=== PATIENT | female | born 1950 | race Caucasian/White ===

== ENCOUNTER 2017-02-07 07:35 | Outpatient (CLI) | payer MEDICARE | END 2017-02-07 07:36 | disposition home or self-care (01) | LOC: BICMAMMO 07:35 | PROVIDERS: ATTEND Family Medicine | DX: Z12.31 Encounter for screening mammogram for malignant neoplasm of breast (principal) | CPT/HCPCS: 77063; G0202; 77067 ==

== ENCOUNTER 2018-05-13 12:55 | Outpatient (CLI) | payer MEDICARE ==
--- NOTE | 2018-05-29 14:36 | MMO ---
Bilateral MAMMO Bilat Screen [facility]. CLINICAL HISTORY: Patient is 67 years old and is seen for screening. The patient has no family history of breast cancer. The patient has a history of uterine cancer at age 55. VIEWS: The views performed were: bilateral craniocaudal with tomosynthesis and bilateral mediolateral oblique with tomosynthesis. FILMS COMPARED: The present examination has been compared to prior imaging studies performed at on 09/03/2007, 10/11/2008, 10/12/2009, 09/06/2015 and 02/07/2017. MAMMOGRAM FINDINGS: The breasts are almost entirely fat. There are no suspicious masses, suspicious calcifications, or new areas of architectural distortion. IMPRESSION: THERE IS NO MAMMOGRAPHIC EVIDENCE OF MALIGNANCY. A ROUTINE FOLLOW-UP MAMMOGRAM IN 1 YEAR IS RECOMMENDED. THE RESULTS OF THIS EXAM WERE SENT TO THE PATIENT. ACR BI-RADS Category 1 - Negative MAMMOGRAPHY NOTE: 1. A negative mammogram report should not delay a biopsy if a dominant of clinically suspicious mass is present. 2. Approximately 10% to 15% of breast cancers are not detected by mammography. 3. Adenosis and dense breasts may obscure an underlying neoplasm.
== END 2018-05-13 12:56 | disposition home or self-care (01) ==
LOC: BICMAMMO 12:55
PROVIDERS: ATTEND Family Medicine
DX: Z12.31 Encounter for screening mammogram for malignant neoplasm of breast (principal); Z85.42 Personal history of malignant neoplasm of other parts of uterus
CPT/HCPCS: 77063; 77067

== ENCOUNTER 2019-05-01 23:24 | Inpatient (IN) | payer MEDICARE ==
[2019-05-02 00:09] LABS: #Monocytes 1.3 thou/uL (0.11-0.59); #Neutrophils 12.6 thou/uL (1.40-6.50); %Basophils 0.1 % (0.0-1.0); %Eosinophils 0.3 % (0.0-10.0); %Lymphocytes 12.2 % (21.0-51.0); %Monocytes 8.4 % (0.0-10.0); Hemoglobin 11.7 g/dL (12.0-16.0); Mean Corpuscular HGB CONC 32.6 g/dL (32.0-36.0); Mean Corpuscular Hemoglobin 29.5 pg (27.0-31.0); Mean Corpuscular Volume 90.4 fL (78.0-98.0); Mean Platelet Volume 9.8 fL (7.4-10.4); Platelet Count 176 thou/uL (130-400); RBC Distribution Width 12.5 % (11.5-14.5); Red Blood Cell (RBC) Count 3.96 mill/uL (4.20-5.40); White Blood Cell (WBC) Count 15.9 thou/uL (4.8-10.8)
[2019-05-02 00:36] LABS: Bilirubin Negative (Negative); Blood, Urine Trace (Negative); Glucose, Urine (Dipstick) 100 mg/dL (Negative); Leukocyte Negative (Negative); Nitrite Negative (Negative); Protein, Urine (Dipstick) Negative (Neg-Trace)
[2019-05-02 00:36] LABS: ALT (SGPT) 21 U/L (8-55); AST (SGOT) 14 U/L (5-34); Albumin 3.9 g/dL (3.4-4.8); Alkaline Phosphatase 99 U/L (40-110); Anion Gap 13 mmol/L (10-20); BUN (Urea Nitrogen) 15 mg/dL (9.8-20.1); Bilirubin, Total 0.7 mg/dL (0.2-1.2); Calc. Creatinine Clearance 0 mL/min (70-130); Calcium 8.9 mg/dL (7.8-10.44); Carbon Dioxide 27 mmol/L (23-31); Chloride 102 mmol/L (98-107); Estimated GFR-MDRD 55; Globulin 3.3 g/dL (2.4-3.5); Glucose 208 mg/dL (80-115); Lipase 10 U/L (8-78); Potassium 4.3 mmol/L (3.5-5.1); Protein, Total 7.2 g/dL (6.0-8.3); Sodium 138 mmol/L (136-145)
[2019-05-02 00:37] LABS: Clarity Clear (Clear)
[2019-05-02 00:57] LABS: RBC/HPF 0-3 HPF (0-3); Squamous Epithelial None Seen HPF (0-3); WBC/HPF 0-3 HPF (0-3)
[2019-05-02 01:03] LABS: Bacteria/HPF 1+ HPF (None Seen)
[2019-05-02] MEDS ORDERED: Morphine 4 MG/ML VIAL ONE (01:13)
[2019-05-02] MEDS ORDERED: Ondansetron PF 4 MG/2 ML Vial ONE (01:13)
[2019-05-02] MEDS ORDERED: Fentanyl 100 MCG/2 ML VIAL ONE (03:00)
[2019-05-02] MEDS ORDERED: Ondansetron PF 4 MG/2 ML Vial IVP PRN (03:56)
[2019-05-02] MEDS ORDERED: Ondansetron ODT 4 MG TAB SL PRN (03:56)
[2019-05-02] MEDS ORDERED: Acetaminophen 325 MG TAB PO PRN (03:56)
[2019-05-02] MEDS ORDERED: HYDROcodone/Acetaminophen 5/325 mg Tablet PO PRN (03:56)
[2019-05-02 04:41] VITALS: BMI 44.1
[2019-05-02] MEDS: HYDROcodone/Acetaminophen 5/325 mg Tablet PO PRN ×2 (05:25→11:17)
[2019-05-02] MEDS: Morphine 4 MG/ML VIAL SLOW IVP PRN ×2 (08:15→14:57)
--- NOTE | 2019-05-02 10:14 | CT ---
PRELIMINARY REPORT/[facility]/ AFTER HOURS PROCEDURE CT ABDOMEN AND PELVIS WITHOUT INTRAVENOUS CONTRAST: CLINICAL HISTORY: Patient reports 2 days of mild left flank pain associated with measured fever of 101. Patient reports sudden, severe left flank pain radiating around the front of her abdomen and towards her left leg this evening, associated with nausea. She denies any cough, shortness of breath, chest pain, recent t ravel, or recent sick contacts. Patient denies any dysuria. She endorses history of renal stones previously but did not feel like this. TECHNIQUE: Axial computed tomography images of the abdomen and pelvis without intravenous contrast. CONTRAST: None. COMPARISON: None provided. FINDINGS: LUNG BASES: No basilar airspace consolidation or pleural effusion. LIVER: Calcified granulomas in the spleen and left hepatic lobe. GALLBLADDER AND BILE DUCTS: Surgically absent gallbladder. PANCREAS: Unremarkable. SPLEEN: Unremarkable. ADRENAL GLANDS: Unremarkable. KIDNEYS, URETERS, AND BLADDER: Asymmetric markedly enlarged left kidney with significant perinephric fat stranding. Irregular hypodense appearance of the cortex with significant swelling inferiorly. No apparent focal fluid collection. The ureters and urinary bladder are within normal limits. STOMACH AND BOWEL: No obstruction. No wall thickening. No CT evidence of colitis or acute diverticuli tis. APPENDIX: No CT evidence for appendicitis. PERITONEUM: No free fluid. No free air. LYMPH NODES: No lymphadenopathy. REPRODUCTIVE: Unremarkable as visualized. VASCULATURE: No aortic aneurysm. ABDOMINAL WALL AND SOFT TISSUES: Unremarkable. BONES: No fracture or suspicious osseous abnormality. IMPRESSION: Severe left-sided renal swelling and inflammation suggestive of pyelonephritis especially in the cont ext of the provided history without evidence of intrarenal abscess within the limitations of this noncontrast technique. ELECTRONICALLY SIGNED BY: Mehul Clark DO May 02, 2019 1:08:43 AM CDT This report is intended for review by the ordering physician only, in accordance of law. If you recei ve this report in error, please call [facility] at [phone]. FINAL REPORT CT ABDOMEN AND PELVIS WITHOUT CONTRAST PERFORMED ON AN EMERGENCY BASIS: 05/02/2019 0051 HOURS HISTORY: Left flank pain. FINDINGS: The left kidney is abnormal in that the overall size is expanded, primarily by a peripheral rim of in creased density. Overall it measures up to 8.9 cm in length. Some margins are ill-defined, extending to prominent stranding throughout the expanded left retroperitoneum. The renal collecting s ystem and ureter are decompressed without focal inflammation. No gas is apparent within the hyperdense fluid collection associated with the left kidney. Calcification at the left renal hilum, f avored to be arterial. The appearance is more suggestive of a nephric/perinephric hematoma than with inflammation/infection. It is possible to have superimposed infection involving the hematoma in the setting of fever. Cause for this left nephric/perinephric hematoma is not apparent. There is a tiny, nonobstructing calculus within the posterior calyx of the right kidney, no greater t myles 0.2 cm greatest diameter. These findings were discussed with Dr. Mattson from the [facility] at the time of the dictat ion. Findings are somewhat in disagreement to the preliminary report by Dr. Clark from [facility]. CODE QD Transcribed Date/Time: 05/02/2019 10:23 AM
[2019-05-02] MEDS ORDERED: Dextrose 5% in Water 1,000 ML IV PRN (13:23)
[2019-05-02] MEDS ORDERED: Dextrose 50% Abboject 50 ML SYRINGE SLOW IVP PRN (13:23)
[2019-05-02] MEDS: Morphine 2 MG/ML SYRINGE SLOW IVP PRN (19:51)
--- NOTE | 2019-05-02 19:52 | PDOC.HHP ---
Hospitalist HPI - History of Present Illness abdominal pain History of Present Illness: This is a 68 year old female with past medical histeory of atrial fibrillation, depression, hypertension who presented to the ER with abdominal pain. The patient states that this has been going on for two months and was intermittent. Her PCP did a lumbar Xray which was negative and was told that she had a muscle strain. Last night it was so severe she couldn't take it anymore. Her pain is in the LUQ and left flank area and does not radiate anywhere. It is worst with movement. She denies pain with eating but states she feels nauseous when she eats. She has not vomited The pain is described as sharp, relieved with some pain medication. She has had a kidney stone in the past, but states the pain was worst than this. She denies any trauma recently. She is on eliquis for atrial fibrillation. She states that she has some problems with incontinence recently but denies urgency, frequency or dysuria. She denies chills but thinks she had a fever. ED Course: In the ER, vitals were normal. The patient had labs which showed WBC of 15. UA was unremarkable. The patient had CT abdomen which initially showed signs of pyelonephritis. Levaquin was given. However repeat interpretation per radiology shows findings consistent with a hematoma. Patient is nervous about holding her eliquis because her family members had strokes when they were withheld Hospitalist ROS - Review of Systems Constitutional: reports: fever. denies: chills Eyes: denies: vision change ENT: denies: ear pain, ear discharge Respiratory: reports: dry. denies: cough Cardiovascular: denies: chest pain, palpitations, orthopnea Gastrointestinal: reports: nausea, vomiting, abdominal pain Genitourinary: denies: dysuria, frequency Musculoskeletal: denies: neck pain, shoulder pain Neurological: denies: weakness, numbness Hospitalist History - Past Medical History Other Medical History: Atrial fibrillation Type II diabetes Depresseion Hypertension Hyperlipidemia - Past Surgical History Other Surgical History: Tonsillectomy Appendectomy Cholecystectomy Bypass Cataract surgery Carotid surgery Hysterectomy Cancer removed in uterine area - Family History Other Family History: Skin cancer Liver cancer in sister - Social History Smoking Status: Former smoker Alcohol: reports: None (former drinker quit in 2001) Occupation: does not work - Exam General Appearance: NAD, awake alert Eye: PERRL, anicteric sclera ENT: normocephalic atraumatic, no oropharyngeal lesions Neck: no JVD Heart: RRR, no murmur, no gallops, no rubs Respiratory: CTAB, no wheezes, no rales, no ronchi Gastrointestinal: soft, no guarding Gastrointestinal - other findings: LUQ tenderness, left flank tenderness Extremities: no cyanosis, no clubbing, no edema Skin: normal turgor, no lesions, no rashes Neurological: cranial nerve grossly intact, normal sensation to touch, no focal deficits, no new deficit Hospitalist Results - Labs Result Diagrams: 05/02/19 00:00 05/02/19 00:00 Lab results: WBC 15.9 thou/uL (4.8-10.8) H 05/02/19 00:00 Hgb 11.7 g/dL (12.0-16.0) L 05/02/19 00:00 Hct 35.8 % (36.0-47.0) L 05/02/19 00:00 MCV 90.4 fL (78.0-98.0) 05/02/19 00:00 Plt Count 176 thou/uL (130-400) 05/02/19 00:00 Neutrophils % 79.0 % (42.0-75.0) H 05/02/19 00:00 Sodium 138 mmol/L (136-145) 05/02/19 00:00 Potassium 4.3 mmol/L (3.5-5.1) 05/02/19 00:00 Chloride 102 mmol/L (98-107) 05/02/19 00:00 Carbon Dioxide 27 mmol/L (23-31) 05/02/19 00:00 BUN 15 mg/dL (9.8-20.1) 05/02/19 00:00 Creatinine 1.01 mg/dL (0.6-1.1) 05/02/19 00:00 Glucose 208 mg/dL (80-115) H 05/02/19 00:00 Lactic Acid 0.8 mmol/L (0.5-2.2) 05/02/19 00:00 Calcium 8.9 mg/dL (7.8-10.44) 05/02/19 00:00 Total Bilirubin 0.7 mg/dL (0.2-1.2) 05/02/19 00:00 AST 14 U/L (5-34) 05/02/19 00:00 ALT 21 U/L (8-55) 05/02/19 00:00 Alkaline Phosphatase 99 U/L (40-110) 05/02/19 00:00 Serum Total Protein 7.2 g/dL (6.0-8.3) 05/02/19 00:00 Albumin 3.9 g/dL (3.4-4.8) 05/02/19 00:00 Lipase 10 U/L (8-78) 05/02/19 00:00 Urine Ketones Negative mg/dL (Negative) 05/02/19:20 Urine Blood Trace (Negative) A 05/02/19:20 Urine Nitrite Negative (Negative) 05/02/19:20 Ur Leukocyte Esterase Negative (Negative) 05/02/19 00:20 Urine RBC 0-3 HPF (0-3) 05/02/19 00:20 Urine WBC 0-3 HPF (0-3) 05/02/19 00:20 Ur Squamous Epith Cells None Seen HPF (0-3) 05/02/19 00:20 Urine Bacteria 1+ HPF (None Seen) A 05/02/19 00:20 Hospitalist H&P A/P - Plan Plan: CT abdomen: perinephric hematoma. Nonobstrucfting calculus 0.2 cm This is a 68 year old female who presented with severe abdominal pain, found to have possible hematoma Left nephric/perinephric hematoma - will continue supportive care with fluids - will continue levaquin empirically pending urine culture given significant CVA tenderness. - urology consult in the am - trend H and H Atrial fibrillation - hold eliquis for now and aspirin Diabetes - sliding scale insulin - fingersticks achs Anemia - Hb 11.7, will continue to trend DVT prophylaxis: SCDS for now Code status: full code
--- NOTE | 2019-05-02 20:03 | PDOC.FMACP ---
Advance Care Planning - Note Participants: patient Summary: Advanced Care Planning was discussed. The diagnosis, prognosis and goals of care were discussed. Appropriate forms and documentation to accomplish the goals of care were discussed. All questions were answered. The Palliative Care Team will be engaged to assist with completion of any outstanding forms that are needed. Patient would like to be full code unless she is a "vegetable" Time Spent (mins): 40
[2019-05-02] MEDS: Atorvastatin Calcium 40 MG TAB PO SCH (22:54)
[2019-05-02] MEDS: Gabapentin 300 MG CAP PO SCH (22:55)
[2019-05-02] MEDS: Amitriptyline HCl 25 MG TAB PO SCH (22:55)
[2019-05-03] MEDS: Morphine 2 MG/ML SYRINGE SLOW IVP PRN ×4 (01:12→19:42)
[2019-05-03] MEDS: Ondansetron PF 4 MG/2 ML Vial IVP PRN ×2 (01:14→19:53)
[2019-05-03 06:14] LABS: Iron 30 ug/dL (50-170); Iron Binding Capacity, Total 215 mcg/dL (265-497)
[2019-05-03 06:37] LABS: Ferritin 262.78 ng/mL (10-291)
[2019-05-03] MEDS: Fish Oil 1,000 MG CAP PO SCH (10:26)
[2019-05-03 11:32] LABS: #Lymphocytes 1.6 thou/uL (1.20-3.40); #Monocytes 1.2 thou/uL (0.11-0.59); #Neutrophils 12.7 thou/uL (1.40-6.50); %Basophils 0.1 % (0.0-1.0); %Eosinophils 0.1 % (0.0-10.0); %Lymphocytes 10.2 % (21.0-51.0); %Monocytes 7.7 % (0.0-10.0); %Neutrophils 81.9 % (42.0-75.0); Hemoglobin 9.5 g/dL (12.0-16.0); Mean Corpuscular HGB CONC 32.9 g/dL (32.0-36.0); Mean Corpuscular Hemoglobin 30.4 pg (27.0-31.0); Mean Corpuscular Volume 92.3 fL (78.0-98.0); Mean Platelet Volume 10.4 fL (7.4-10.4); Platelet Count 164 thou/uL (130-400); RBC Distribution Width 12.6 % (11.5-14.5); Red Blood Cell (RBC) Count 3.12 mill/uL (4.20-5.40); White Blood Cell (WBC) Count 15.5 thou/uL (4.8-10.8)
--- NOTE | 2019-05-03 11:50 | CON ---
DATE OF CONSULTATION: 05/03/2019 HISTORY OF PRESENT ILLNESS: This is a 68-year-old white female, was admitted just at this point about 36 hours ago, was on Saturday evening, today Saturday morning, I was asked to see her today. She was admitted with right flank pain, came on acutely that evening, was very severe. She had some nausea with no vomiting. Does not really have any fevers or chills, maybe little urinary frequency, no burning. She may have seen a little blood in her urine. She had a noncontrast CAT scan that shows what appears to be a left subcapsular hematoma. She has been on Eliquis for atrial fibrillation. Hemoglobin when she came in was 11.7. Her white count was 15.9. Her platelet count was normal. She did not have coags done. Her creatinine when she came in was 1.0. None of that blood tests have been repeated. Urinalysis showed 0 to 3 red cells, 0 to 3 white cells, and 1+ bacteria. She was placed on Levaquin. Urine culture was obtained. Urine culture is pending currently. She had a great deal of pain yesterday, although she is feeling a bit better today, and she is actually eating regular food now. She has a history of kidney stones, none recently. She has a history of recurrent urinary tract infections, though none recently. She had seen 2 to 3 different urologists in the past, but cannot recall any of their names. I reviewed her CAT scan as well as the report, it was a noncontrast study. PAST MEDICAL HISTORY: She has atrial fibrillation, diabetes, depression, hypertension, hyperlipidemia. She has had appendectomy, cholecystectomy, coronary artery bypass. PAST SURGICAL HISTORY: She has had carotid surgery. She has had hysterectomy for uterine cancer. She has had cataract surgery and tonsillectomy. SOCIAL HISTORY: She is former smoker. Does not drink alcohol at this point. PHYSICAL EXAMINATION: She does have left CVA tenderness. Abdomen is tender, but otherwise soft, it is tender in the left upper quadrant. There is a rebound in this region, but the rest of the abdomen is soft. IMPRESSION: Left subcapsular hematoma. There is a little bit of perinephric blood. Her vital signs are stable. I think we should at least check a CBC and chem-7 on her again to see what her creatinine is doing and what her hemoglobin is doing. She need a contrast study at some point, but I think as long as her hemoglobin is stable and if she is improving, we can wait and do a contrast study in 2 to 3 weeks to look at this area little bit better. She had a CAT scan done in 2016 that I reviewed and she did not have any evidence of a left-sided renal mass or abnormality. She has a tiny little calcification that could be a tiny little stone in her kidney, but nothing in the ureter and she has some vascular calcifications on this current CT. So, we will check her hemoglobin and check a chem-7. I do not think any other intervention would be required right now. If she does have a return of significant pain or if her hemoglobin is dramatically changing, then we may need to contact Vascular Surgery for arteriogram and possible embolization for persistent bleeding. On reviewing her hemoglobin, her last hemoglobin in February was 12.9, this one is 11.7, so we will see what the one test today show. Job ID: [id number]
[2019-05-03] MEDS: HumaLOG 300 UNITS/3 ML VIAL SC PRN ×3 (14:10→20:07)
[2019-05-03 14:58] LABS: #Eosinphils 0.1 thou/uL (0.0-0.7); #Lymphocytes 1.6 thou/uL (1.20-3.40); #Monocytes 1.1 thou/uL (0.11-0.59); #Neutrophils 11.7 thou/uL (1.40-6.50); %Basophils 0.2 % (0.0-1.0); %Eosinophils 0.5 % (0.0-10.0); %Lymphocytes 11.2 % (21.0-51.0); %Monocytes 7.7 % (0.0-10.0); %Neutrophils 80.4 % (42.0-75.0); Hemoglobin 9.5 g/dL (12.0-16.0); Mean Corpuscular HGB CONC 32.6 g/dL (32.0-36.0); Mean Corpuscular Hemoglobin 29.8 pg (27.0-31.0); Mean Corpuscular Volume 91.4 fL (78.0-98.0); Mean Platelet Volume 9.3 fL (7.4-10.4); Platelet Count 186 thou/uL (130-400); RBC Distribution Width 12.5 % (11.5-14.5); Red Blood Cell (RBC) Count 3.19 mill/uL (4.20-5.40); White Blood Cell (WBC) Count 14.6 thou/uL (4.8-10.8)
[2019-05-03 15:21] LABS: Anion Gap 11 mmol/L (10-20); BUN (Urea Nitrogen) 13 mg/dL (9.8-20.1); Calc. Creatinine Clearance 75 mL/min (70-130); Carbon Dioxide 29 mmol/L (23-31); Chloride 98 mmol/L (98-107); Estimated GFR-MDRD 40; Glucose 243 mg/dL (80-115); Potassium 4.8 mmol/L (3.5-5.1); Sodium 133 mmol/L (136-145)
--- NOTE | 2019-05-03 15:46 | PDOC.HOSPP ---
- Subjective Encounter Date: 05/03/19 Encounter Time: 15:45 Subjective: CC: hematoma The patient reports improvement in her abdominal pain. Today is the first day that she is able to eat food. She has no nausea or vomiting. No blood in her urine. CBC went down to 9 today, per urology will trend CBC tonight, consideration of embolization of continues to drop Patient has not been out of bed. I advise patient to ambulate frequently to prevent clots - Objective Vital Signs & Weight: Vital Signs (12 hours) Temp Pulse Resp BP Pulse Ox 05/03/19 11:54 99.1 F 96 16 138/80 05/03/19 08:00 95 05/03/19 07:43 99.0 F 89 16 126/80 95 05/03/19 04:39 98.5 F 89 20 122/54 L 98 Weight Admit Weight 249 lb Weight 249 lb I&O: 05/02/19 05/03/19 05/04/19 06:59 06:59 06:59 Intake Total 240 240 Output Total 400 Balance -160 240 Result Diagrams: 05/03/19 14:52 05/03/19 14:52 Additional Labs: Accuchecks 05/03/19 05/03/19 05/02/19 11:58 04:48 19:31 POC Glucose 239 H 213 H 251 H 05/02/19 16:35 POC Glucose 264 H Hospitalist ROS - Medication Medications: Active Medications Generic Name Dose Route Start Last Admin Trade Name Freq PRN Reason Stop Dose Admin Amitriptyline HCl 50 mg 05/02/19 21:00 05/02/19 22:55 Elavil PO 50 mg HS LENNOX Administration Atorvastatin Calcium 80 mg 05/02/19 21:00 05/02/19 22:54 Lipitor PO 80 mg HS LENNOX Administration Cholecalciferol 5,000 units 05/03/19 09:00 05/03/19 10:25 Vitamin D3 PO 5,000 units DAILY LENNOX Administration Fish Oil 1,000 mg 05/03/19 09:00 05/03/19 10:26 Fish Oil PO 1,000 mg DAILY LENNOX Administration Gabapentin 600 mg 05/02/19 21:00 05/02/19 22:55 Neurontin PO 600 mg HS LENNOX Administration Levofloxacin 750 mg/ Device 150 mls @ 100 mls/hr 05/03/19 01:00 05/03/19 00: 45 IVPB 150 mls Q24HR LENNOX Administration Insulin Human Lispro 0 units 05/02/19 13:23 05/03/19 14:10 Humalog SC 3 unit .MILD SLIDING SCALE PRN Administration Mild Correctional Scale Morphine Sulfate 2 mg 05/02/19 17:10 05/03/19 14:56 Morphine SLOW IVP 2 mg Q4H PRN Administration Moderate Pain (4-6) Ondansetron HCl 4 mg 05/02/19 17:10 05/03/19 01:14 Zofran IVP 4 mg Q6H PRN Administration Nausea/Vomiting - Exam General Appearance: NAD, awake alert Eye: PERRL, anicteric sclera ENT: normocephalic atraumatic, no oropharyngeal lesions Neck: supple, no JVD Heart: RRR, no murmur, no gallops, no rubs Respiratory: CTAB, no wheezes, no rales, no ronchi Gastrointestinal - other findings: LUQ and LLQ tenderness, no CVA tenderness Extremities: no cyanosis, no edema Skin: normal turgor, no lesions, no rashes Hosp A/P - Plan This is a 68 year old female who presented with severe abdominal pain, found to have possible hematoma Left nephric/perinephric hematoma Anemia - continue to trend hemoglobin. Will repeat one at 7 pm tonight. Hemoglobin dropped 2 points. If continues to drop significantly will consider transfusion - urology consulted, recommended supportive care - urine culture growing 10,000 to 25,000 gram negative rods. On levaquin, continue for now pending final report Atrial fibrillation - hold eliquis for now and aspirin - will need discussion with Dr. Stevenson regarding resumption of anticoagulation down the road Diabetes - sliding scale insulin - fingersticks achs Code status: full code
[2019-05-03 19:14] LABS: Hemoglobin 9.2 g/dL (12.0-16.0); Mean Corpuscular Volume 91.1 fL (78.0-98.0); Mean Platelet Volume 9.5 fL (7.4-10.4); Platelet Count 193 thou/uL (130-400); RBC Distribution Width 12.4 % (11.5-14.5); Red Blood Cell (RBC) Count 3.07 mill/uL (4.20-5.40); White Blood Cell (WBC) Count 15.1 thou/uL (4.8-10.8)
[2019-05-03] MEDS: Sodium Chloride 0.9% 1,000 ML IV SCH (19:47)
[2019-05-03] MEDS: Atorvastatin Calcium 40 MG TAB PO SCH (19:54)
[2019-05-03] MEDS: Gabapentin 300 MG CAP PO SCH (19:55)
[2019-05-03] MEDS: Senokot S 8.6-50 MG TAB PO SCH (19:55)
[2019-05-03] MEDS: Amitriptyline HCl 25 MG TAB PO SCH (19:55)
[2019-05-04] MEDS: Morphine 2 MG/ML SYRINGE SLOW IVP PRN ×3 (00:11→15:08)
[2019-05-04] MEDS ORDERED: Sodium Chloride 0.9% 500 ML IV SCH (00:30)
--- NOTE | 2019-05-04 00:39 | PDOC.EVN ---
Event Note - Event Note Event Note: Patient with HR in the 130-140's ... has a history of Afib, eliquis and metoprolol held for renal hematoma. EKG with indeterminate rhythm, will transfer to Tele, IVF 500ml bolus ordered, will check BMP, CBC and Mag with am labs. Dr. Samuel arauz.
[2019-05-04] MEDS: Sodium Chloride 0.9% 500 ML IV SCH ×2 (01:10→01:54)
[2019-05-04] MEDS ORDERED: Digoxin 0.5 MG/2 ML AMP SLOW IVP SCH ×2 (01:30→03:00)
[2019-05-04] MEDS ORDERED: Sodium Chloride 0.9% 500 ML IVPB PRN (02:58)
[2019-05-04] MEDS ORDERED: Metoprolol Tartrate 5 MG/5 ML VIAL IVP SCH (03:00)
[2019-05-04 05:07] LABS: Hemoglobin 8.8 g/dL (12.0-16.0); Mean Corpuscular HGB CONC 32.3 g/dL (32.0-36.0); Mean Corpuscular Hemoglobin 29.4 pg (27.0-31.0); Mean Corpuscular Volume 90.9 fL (78.0-98.0); Mean Platelet Volume 9.9 fL (7.4-10.4); Platelet Count 215 thou/uL (130-400); RBC Distribution Width 12.3 % (11.5-14.5); White Blood Cell (WBC) Count 15.1 thou/uL (4.8-10.8)
[2019-05-04 05:30] LABS: Anion Gap 10 mmol/L (10-20); BUN (Urea Nitrogen) 15 mg/dL (9.8-20.1); Calc. Creatinine Clearance 76 mL/min (70-130); Calcium 8.5 mg/dL (7.8-10.44); Carbon Dioxide 27 mmol/L (23-31); Chloride 101 mmol/L (98-107); Estimated GFR-MDRD 41; Glucose 204 mg/dL (80-115); Magnesium 1.8 mg/dL (1.6-2.6); Potassium 5.1 mmol/L (3.5-5.1); Sodium 133 mmol/L (136-145)
[2019-05-04] MEDS: Senokot S 8.6-50 MG TAB PO SCH ×2 (08:06→20:43)
[2019-05-04] MEDS: Fish Oil 1,000 MG CAP PO SCH (08:06)
--- NOTE | 2019-05-04 09:22 | PRG ---
DATE OF SERVICE: 05/04/2019 She was transferred to telemetry last night because of rapid heart rate. Assuming she went back into atrial fibrillation, her heart rate is now back to normal. Her blood pressure was fine through it. She is still having some discomfort in her left side, however, it is better than it was yesterday. She has been afebrile since yesterday afternoon, when she was 100.1. Her white blood cell count is 15.1, her hemoglobin is 8.8 this morning, so it has drifted down, but it does not appear to be rapidly drifting down. Platelet count was 215. Creatinine is basically stable at 1.3. Microbiology shows 2 gram-negative rods, both of very low counts as well as mixed skin and enteric sharonda. It is probably contamination, but I did called microbiology department workup of two gram-negative rods. She is still on Levaquin. I think we can continue to watch her hemoglobin and blood work. I would keep her on the antibiotics till the cultures return. Keep her off all blood thinners. If her hemoglobin drops down some more, we may repeat a CAT scan before considering any other intervention in terms of angiography. Job ID: [id number]
[2019-05-04] MEDS ORDERED: Metoprolol Tartrate 25 MG TAB PO SCH ×2 (09:55→10:45)
[2019-05-04] MEDS: Sodium Chloride 0.9% 1,000 ML IV SCH (15:17)
[2019-05-04] MEDS: HYDROcodone/Acetaminophen 5/325 mg Tablet PO PRN ×2 (16:19→22:02)
[2019-05-04] MEDS: HumaLOG 300 UNITS/3 ML VIAL SC PRN ×2 (19:11→21:56)
--- NOTE | 2019-05-04 19:20 | PDOC.HOSPP ---
- Subjective Encounter Date: 05/04/19 Encounter Time: 17:30 Subjective: F/u: hematoma The patient went into afib overnight and was transferred to telemetry. Patient was given IV metoprolol overnight SHe continues to complain of significant pain in her left flank but states it is radiating to her abdomen. She has trouble walking due to the pain. She also states the pain is worst when bending over, turning. She is having nursing help her give a bath. She is desperate for pain to go away Patient states she has been not wanting to drink or eat much due to the pain. Advised her to drink more. SHe has not had a good bowel movement because she hasn't been eating much - Objective Vital Signs & Weight: Vital Signs (12 hours) Temp Pulse Resp BP Pulse Ox 05/04/19 16:21 98.7 F 77 18 146/67 H 97 05/04/19 12:32 98.3 F 89 18 140/62 96 05/04/19 08:00 96 05/04/19 07:55 98.5 F 83 18 130/78 92 L Weight Admit Weight 249 lb Weight 249 lb I&O: 05/03/19 05/04/19 05/05/19 06:59 06:59 06:59 Intake Total 240 1545 Output Total 400 Balance -160 1545 Result Diagrams: 05/04/19 04:34 05/04/19 04:34 Additional Labs: Accuchecks 05/04/19 05/04/19 05/03/19 17:44 11:30 19:36 POC Glucose 216 H 315 H 263 H Hospitalist ROS - Review of Systems Constitutional: denies: fever, chills Respiratory: denies: cough, dry - Medication Medications: Active Medications Generic Name Dose Route Start Last Admin Trade Name Freq PRN Reason Stop Dose Admin Hydrocodone Bitart/Acetaminophen 1 tab 05/04/19 13:28 05/04/19 16:19 [place] 5/325 PO 1 tab Q6H PRN Administration Mild-Moderate Pain (1-5) Amitriptyline HCl 50 mg 05/02/19 21:00 05/03/19 19:55 Elavil PO 50 mg HS LENNOX Administration Atorvastatin Calcium 80 mg 05/02/19 21:00 05/03/19 19:54 Lipitor PO 80 mg HS LENNOX Administration Cholecalciferol 5,000 units 05/03/19 09:00 05/04/19 08:06 Vitamin D3 PO 5,000 units DAILY LENNOX Administration Fish Oil 1,000 mg 05/03/19 09:00 05/04/19 08:06 Fish Oil PO 1,000 mg DAILY LENNOX Administration Gabapentin 600 mg 05/02/19 21:00 05/03/19 19:55 Neurontin PO 600 mg HS LENNOX Administration Levofloxacin 750 mg/ Device 150 mls @ 100 mls/hr 05/03/19 01:00 05/04/19 00: 12 IVPB 150 mls Q24HR LENNOX Administration Sodium Chloride 1,000 mls @ 75 mls/hr 05/03/19 19:30 05/04/19 15:17 Normal Saline 0.9% IV 1,000 mls .[id number] LENNOX Administration Insulin Human Lispro 0 units 05/02/19 13:23 05/04/19 19:11 Humalog SC 3 unit .MILD SLIDING SCALE PRN Administration Mild Correctional Scale Morphine Sulfate 2 mg 05/02/19 17:10 05/04/19 15:08 Morphine SLOW IVP 2 mg Q4H PRN Administration BREAKTHRU PAIN Ondansetron HCl 4 mg 05/02/19 17:10 05/03/19 19:53 Zofran IVP 4 mg Q6H PRN Administration Nausea/Vomiting Senna/Docusate Sodium 1 tab 05/03/19 21:00 05/04/19 08:06 Senokot S PO 1 tab BID LENNOX Administration - Exam General Appearance: NAD, awake alert General - other findings: morbidly obese Eye: PERRL, anicteric sclera ENT: normocephalic atraumatic, no oropharyngeal lesions Neck: supple, no JVD Heart: RRR, no murmur, no gallops, no rubs Respiratory: CTAB, no wheezes, no rales, no ronchi Gastrointestinal: soft, non-tender, non-distended, normal bowel sounds Gastrointestinal - other findings: left CVA tenderness, LUQ and LLQ tenderness Extremities: no cyanosis, no clubbing, no edema Skin: normal turgor, no lesions, no rashes Neurological: cranial nerve grossly intact, normal sensation to touch, no focal deficits, no new deficit Musculoskeletal: normal tone, normal strength, no muscle wasting Psychiatric: normal affect, normal behavior, A&O x 3, oriented to person Hosp A/P - Plan This is a 68 year old female who presented with severe abdominal pain, found to have possible hematoma Left nephric/perinephric hematoma Anemia - hemoglobin dropped slightly overnight. Will repeat another one now and check another in the morning - urology on board, if drops significantly then will need embolization - urine culture growing 10,000 to 25,000 gram negative rods. On levaquin, continue for now pending final report Atrial fibrillation - hold eliquis for now and aspirin - resumed metoprolol 12.5 mg bid Diabetes - sliding scale insulin. Will order lantus 10 units qhs since blood sugars in the 300's - fingersticks achs DVT prophylaxis: holding due to hematoma. SCD and frequent ambulation Code status: full code
[2019-05-04] MEDS ORDERED: Polyethylene Glycol 3350 17 GM Packet PO PRN (19:21)
[2019-05-04 19:42] LABS: Hemoglobin 8.9 g/dL (12.0-16.0); Mean Corpuscular HGB CONC 32.6 g/dL (32.0-36.0); Mean Corpuscular Hemoglobin 29.8 pg (27.0-31.0); Mean Corpuscular Volume 91.6 fL (78.0-98.0); Mean Platelet Volume 8.8 fL (7.4-10.4); Platelet Count 248 thou/uL (130-400); RBC Distribution Width 12.2 % (11.5-14.5); Red Blood Cell (RBC) Count 2.99 mill/uL (4.20-5.40)
[2019-05-04] MEDS: Amitriptyline HCl 25 MG TAB PO SCH (20:43)
[2019-05-04] MEDS: Metoprolol Tartrate 25 MG TAB PO SCH (20:43)
[2019-05-04] MEDS: Gabapentin 300 MG CAP PO SCH (20:43)
[2019-05-04] MEDS: Atorvastatin Calcium 40 MG TAB PO SCH (20:43)
[2019-05-04] MEDS ORDERED: Insulin Glargine 10 UNITS in Pre-Filled Syringe 1 EACH SC SCH (21:00)
[2019-05-05] MEDS: HYDROcodone/Acetaminophen 5/325 mg Tablet PO PRN ×4 (04:28→22:32)
[2019-05-05 04:51] LABS: Hemoglobin 8.6 g/dL (12.0-16.0); Mean Corpuscular HGB CONC 31.6 g/dL (32.0-36.0); Mean Corpuscular Volume 91.8 fL (78.0-98.0); Mean Platelet Volume 9.2 fL (7.4-10.4); Platelet Count 259 thou/uL (130-400); RBC Distribution Width 12.4 % (11.5-14.5); Red Blood Cell (RBC) Count 2.97 mill/uL (4.20-5.40); White Blood Cell (WBC) Count 12.2 thou/uL (4.8-10.8)
[2019-05-05 05:32] LABS: Anion Gap 10 mmol/L (10-20); BUN (Urea Nitrogen) 15 mg/dL (9.8-20.1); Calc. Creatinine Clearance 89 mL/min (70-130); Calcium 9.1 mg/dL (7.8-10.44); Carbon Dioxide 30 mmol/L (23-31); Chloride 102 mmol/L (98-107); Estimated GFR-MDRD 49; Glucose 163 mg/dL (80-115); Potassium 5.1 mmol/L (3.5-5.1); Sodium 137 mmol/L (136-145)
[2019-05-05] MEDS: Fish Oil 1,000 MG CAP PO SCH (09:21)
[2019-05-05] MEDS: Metoprolol Tartrate 25 MG TAB PO SCH ×2 (09:22→19:50)
[2019-05-05] MEDS: Senokot S 8.6-50 MG TAB PO SCH ×2 (09:27→19:51)
[2019-05-05] MEDS: Ondansetron PF 4 MG/2 ML Vial IVP PRN ×2 (10:29→19:52)
--- NOTE | 2019-05-05 11:22 | EKG ---
Test Reason : RHYTHM Blood Pressure : / mmHG Vent. Rate : 145 BPM Atrial Rate : 127 BPM P-R Int : 000 ms QRS Dur : 086 ms QT Int : 284 ms P-R-T Axes : 000 055 126 degrees QTc Int : 441 ms Atrial fibrillation Nonspecific ST and T wave abnormality Abnormal ECG No previous ECGs available Confirmed by DR. Donny BEATTY MD ([id number]) on 05/05/2019 11:22:01 AM Referred By: Caden DUNLAP Confirmed By:DR. Donny BEATTY MD
[2019-05-05] MEDS: Sodium Chloride 0.9% 1,000 ML IV SCH ×2 (11:48→17:11)
[2019-05-05] MEDS: HumaLOG 300 UNITS/3 ML VIAL SC PRN ×2 (11:49→17:34)
--- NOTE | 2019-05-05 12:10 | PRG ---
DATE OF SERVICE: 05/05/2019 She is in room 268 still. She is not tachycardic anymore. O2 sats are good. She has been afebrile. Creatinine is 1.1. Her hemoglobin is 8.6, it was 8.9 yesterday, 8.8 yesterday morning, it has dropped slightly. Her cultures did grow out E coli and Klebsiella, are pretty much pansensitive. She is probably just be placed on oral antibiotic for that. She has currently been on IV Levaquin 750 mg, she could certainly be switched to just 500 mg p.o. Levaquin. She still is having some discomfort when she moves around. She has some tenderness on palpation to the left upper quadrant. She will need a CAT scan with contrast, it probably is a good time to do it with her creatinine being as low as it is, so I will order that to be done today to get a better look at the kidney itself. I do not think this might change much of what we will do for this. At this point, I think she will end up being managed without requiring embolization, but will take with a better CAT scan today. Job ID: [id number]
[2019-05-05] MEDS: Morphine 2 MG/ML SYRINGE SLOW IVP PRN ×2 (12:31→19:51)
--- NOTE | 2019-05-05 18:13 | PDOC.HOSPP ---
- Subjective Encounter Date: 05/05/19 Encounter Time: 16:00 Subjective: F/u: perinephric hematoma The patient continues to complain of severe flank pain on the left side. Her hemoglobin is dropping some. Urology wants to repeat CAT scan . When she walked with physical therapy she had a lot of pain s prefers just doing exercises in her bed - Objective Vital Signs & Weight: Vital Signs (12 hours) Temp Pulse Resp BP Pulse Ox 05/05/19 15:52 99.5 F 74 16 140/62 96 05/05/19 11:57 98.6 F 72 16 140/64 97 05/05/19 09:08 99.4 F 80 16 152/67 H 93 L Weight Admit Weight 249 lb Weight 249 lb I&O: 05/04/19 05/05/19 05/06/19 06:59 06:59 06:59 Intake Total 2682 659 6365 Balance 9888 471 0794 Result Diagrams: 05/05/19 03:57 05/05/19 03:57 Additional Labs: Accuchecks 05/05/19 05/05/19 05/05/19 17:03 11:29 05:27 POC Glucose 221 H 252 H 182 H 05/04/19 20:47 POC Glucose 297 H Hospitalist ROS - Review of Systems Constitutional: denies: fever Respiratory: denies: pleuritic pain - Medication Medications: Active Medications Generic Name Dose Route Start Last Admin Trade Name Freq PRN Reason Stop Dose Admin Hydrocodone Bitart/Acetaminophen 1 tab 05/04/19 13:28 05/05/19 16:45 [place] 5/325 PO 1 tab Q6H PRN Administration Mild-Moderate Pain (1-5) Amitriptyline HCl 50 mg 05/02/19 21:00 05/04/19 20:43 Elavil PO 50 mg HS LENNOX Administration Atorvastatin Calcium 80 mg 05/02/19 21:00 05/04/19 20:43 Lipitor PO 80 mg HS LENNOX Administration Cholecalciferol 5,000 units 05/03/19 09:00 05/05/19 09:22 Vitamin D3 PO 5,000 units DAILY LENNOX Administration Fish Oil 1,000 mg 05/03/19 09:00 05/05/19 09:21 Fish Oil PO 1,000 mg DAILY LENNOX Administration Gabapentin 600 mg 05/02/19 21:00 05/04/19 20:43 Neurontin PO 600 mg HS LENNOX Administration Levofloxacin 750 mg/ Device 150 mls @ 100 mls/hr 05/03/19 01:00 05/05/19 00: 38 IVPB 150 mls Q24HR LENNOX Administration Sodium Chloride 1,000 mls @ 75 mls/hr 05/03/19 19:30 05/05/19 17:11 Normal Saline 0.9% IV Not Given .[id number] LENNOX Insulin Glargine 10 units/ 0.1 mls @ 0 mls/hr 05/04/19 21:00 05/04/19 21:54 Miscellaneous Medication SC 0.1 mls HS LENNOX Administration Insulin Human Lispro 0 units 05/02/19 13:23 05/05/19 17:34 Humalog SC 3 unit .MILD SLIDING SCALE PRN Administration Mild Correctional Scale Insulin Human Lispro 0 units 05/04/19 20:53 05/04/19 21:56 Humalog SC 3 unit .BEDTIME SLIDING SC PRN Administration Bedtime Correctional Scale Metoprolol Tartrate 12.5 mg 05/04/19 21:00 05/05/19 09:22 Lopressor PO 12.5 mg BID LENNOX Administration Morphine Sulfate 2 mg 05/02/19 17:10 05/05/19 12:31 Morphine SLOW IVP 2 mg Q4H PRN Administration BREAKTHRU PAIN Ondansetron HCl 4 mg 05/02/19 17:10 05/05/19 10:29 Zofran IVP 4 mg Q6H PRN Administration Nausea/Vomiting Senna/Docusate Sodium 1 tab 05/03/19 21:00 05/05/19 09:27 Senokot S PO 1 tab BID LENNOX Administration - Exam General Appearance: NAD, awake alert General - other findings: Morbidly obese Eye: PERRL, anicteric sclera ENT: normocephalic atraumatic, no oropharyngeal lesions Neck: no JVD Heart: RRR, no murmur, no gallops Respiratory: CTAB, no wheezes, no rales, no ronchi Gastrointestinal: soft, non-tender, normal bowel sounds Gastrointestinal - other findings: LUQ and LLQ tendernes, CVA tenderness to mild palpatoin Extremities: no cyanosis, no clubbing, no edema Skin: normal turgor, no lesions, no rashes Neurological: cranial nerve grossly intact, normal sensation to touch, no weakness, no focal deficits, no new deficit Musculoskeletal: normal tone, normal strength, no muscle wasting Psychiatric: normal affect, normal behavior, A&O x 3 Hosp A/P - Plan This is a 68 year old female who presented with severe abdominal pain, found to have possible hematoma Left nephric/perinephric hematoma Anemia - hemoglobin dropped slightly. CT scan ordered and pending - urology on board, if drops significantly then will need embolization - urine culture growing 10,000 to 25,000 gram negative rods. On levaquin, continue for now pending final report but will switch to oral antibiotics Atrial fibrillation - hold eliquis for now and aspirin - resumed metoprolol 12.5 mg bid - cardiology will be consulted, per Dr. Stevenson may need a Lariat device Diabetes - sliding scale insulin. Will increase lantus to 12 units - fingersticks achs DVT prophylaxis: continue SCDS Code status: full code
[2019-05-05] MEDS: predniSONE 50 MG TAB PO SCH (19:50)
--- NOTE | 2019-05-05 19:50 | CON ---
DATE OF CONSULTATION: 05/05/2019 REASON FOR CONSULTATION: Bleeding and need for Eliquis. PRIMARY TONE ARTIST APPRENTICE: Sukhdeep Stevenson MD HISTORY OF PRESENT ILLNESS: Ms. Stroud is a pleasant 68-year-old white female, who comes to the hospital for abdominal pain. Her pain is actually on her left flank. She was diagnosed with a left subcapsular renal hematoma with perinephric blood, so her Eliquis and aspirin were stopped. Her hemoglobin has dropped mildly from about 11 to 8 now. Her pain is stable, but she has had this for a few weeks now. She has paroxysmal atrial fibrillation and has been on atrial fibrillation for some time now. I am being asked to give my opinion as to what other measures we can have for stroke prophylaxis as she is very nervous that she is going to have a stroke as her brother had a similar situation where he had his anticoagulants stopped and he had a stroke in the interim. Currently, she has no symptoms of a stroke. PAST MEDICAL HISTORY: 1. Coronary artery disease, status post bypass grafting x4. 2. Severe aortic stenosis, status post bioprosthetic surgical aortic valve and subsequently severe stenosis of this bioprosthetic valve and status post TAVR in [place] in 2017. 3. Type 2 diabetes. 4. Hypertension. FAMILY HISTORY: Coronary artery disease in both father and brother. SOCIAL HISTORY: Quit smoking in 2001. No alcohol or drugs. OUTPATIENT MEDICATIONS: 1. Vitamin D3. 2. Tizanidine. 3. Metformin 500 mg at bedtime. 4. Onward-3 fish oil. 5. Glipizide 5 mg a day. 6. Amlodipine 10 mg a day. 7. Aspirin 81 a day. 8. Metoprolol tartrate 25 mg b.i.d. 9. Eliquis 5 mg b.i.d. 10. Omeprazole 20 mg a day. 11. Amitriptyline. 12. Tylenol with Codeine. 13. Atorvastatin 80 mg at bedtime. 14. Gabapentin. 15. Isosorbide mononitrate 30 mg a day. 16. Lisinopril 40 mg a day. ALLERGIES: 1. CEPHALEXIN GIVES HER HIVES. 2. CONTRAST GIVES HER RASH. 3. PROPOXYPHENE GIVES HER EMESIS. 4. SULFA DRUGS GIVE HER RASH. REVIEW OF SYSTEMS: A 12-point review of systems was done and was all negative unless stated in the history of present illness. PHYSICAL EXAMINATION: VITAL SIGNS: Temperature 99.5, pulse 74, respiratory rate 16, saturating 96% on 2 L nasal cannula, and blood pressure 140/62. GENERAL: Awake, alert, and oriented x3, in no distress. HEENT: Normocephalic and atraumatic. NECK: Supple. LUNGS: Clear. CARDIOVASCULAR: S1 and S2. No S3 or S4. No murmurs. ABDOMEN: Soft. Positive bowel sounds. EXTREMITIES: Trace edema. SKIN: Warm and dry. LABORATORY DATA: Laboratory work was reviewed. CBC with a white count of 15 on admission down to 12.2, her hemoglobin went from 11.7 down to 8.6 today. Normal platelet count. Chemistry with normal sodium potassium, chloride, carbon dioxide, gap of 10, BUN of 15, creatinine 1.11, GFR of 49, calcium of 9.1, normal LFT, and lipase of 10. UA with 100 glucose, trace blood, 1+ bacteria, and urine positive culture for E coli and Klebsiella pneumoniae. E coli only 10,000 to 25,000 units as well as Klebsiella, so this is probably normal skin sharonda. CT of the abdomen was reviewed. EKG was reviewed. ASSESSMENT: 1. Left renal subcapsular hematoma with mild amount of perinephric blood. 2. Paroxysmal atrial fibrillation, on Eliquis. 3. Coronary artery disease, status post coronary artery bypass graft. Stable coronary artery disease. No acute coronary syndrome. 4. Severe aortic stenosis, status post transcatheter aortic valve replacement with [id number] technique, previous bioprosthetic aortic valve. PLAN: 1. Agree with stopping Eliquis and aspirin. At this time, we will discuss with Urology whether the timing of restarting at least low-dose aspirin for stroke prophylaxis. I will also place once I know how if this is something that will make her have a contraindication to full anticoagulation. She will be a candidate for a Watchman or LARIAT device. We will discuss this in the next few days and we may need to put in an EP consultation at that point, but we will hold off for now. 2. Continue to trend CBC per primary team and Urology. Thank you for letting us to participate in the care of the patient. We will follow. Job ID: [id number]
[2019-05-05] MEDS: Amitriptyline HCl 25 MG TAB PO SCH (19:51)
[2019-05-05] MEDS: Atorvastatin Calcium 40 MG TAB PO SCH (19:51)
[2019-05-05] MEDS: Gabapentin 300 MG CAP PO SCH (19:52)
[2019-05-05] MEDS: Insulin Glargine 12 UNITS in Pre-Filled Syringe 1 EACH SC SCH (19:56)
[2019-05-06] MEDS: predniSONE 50 MG TAB PO SCH ×2 (00:58→08:43)
[2019-05-06] MEDS: Sodium Chloride 0.9% 1,000 ML IV SCH (01:02)
[2019-05-06] MEDS: HYDROcodone/Acetaminophen 5/325 mg Tablet PO PRN ×3 (04:36→18:21)
[2019-05-06] MEDS ORDERED: diphenhydrAMINE 50 MG CAP PO SCH (08:00)
[2019-05-06] MEDS: Fish Oil 1,000 MG CAP PO SCH (08:44)
[2019-05-06] MEDS: Metoprolol Tartrate 25 MG TAB PO SCH ×2 (08:44→21:05)
[2019-05-06] MEDS: Senokot S 8.6-50 MG TAB PO SCH ×2 (08:45→21:05)
[2019-05-06] MEDS: HumaLOG 300 UNITS/3 ML VIAL SC PRN ×4 (08:45→21:06)
--- NOTE | 2019-05-06 10:35 | CT ---
CT Abdomen Pelvis W WO con: 05/06/2019 9:00 AM CLINICAL HISTORY: Left perinephric hematoma. TECHNIQUE: Multiple contiguous axial images were obtained and a CT of the abdomen and pelvis without and with IV contrast. Postcontrast images were obtained in the nephrographic and excretory phases. Sagittal and coronal reformats were performed. COMPARISON: 05/02/2019 FINDINGS: Kidneys and Urinary Tract: Right kidney and ureter: There is a stable perinephric hematoma surrounding the right kidney measurin g 3.3 cm in greatest thickness. There is debris decreased enhancement of the left kidney compared to the right minimal excretion on the excretory phase images. No calculi. No hydronephrosis or hydrou reter. No obvious renal mass or other lesions. No urothelial lesions: no filling defect, dilation, stricture or wall thickening. Left kidney and ureter: No calculi. No hydronephrosis or hydroureter. No renal mass or other lesions. No urothelial lesions: no filling defect, dilation, stricture or wall thickening. Urinary bladder: Normal, no calculi, mass or other lesions. Remainder of Abdomen and Pelvis: Liver: Normal. Gallbladder and biliary system: Removed No biliary ductal dilatation. Spleen: Calcified granulomas Pancreas: Normal. Adrenal glands: 1.6 cm right adrenal nodule. This has a mean Hounsfield unit value of 10 on the nonco ntrast exam. GI tract: Normal. Abdominal aorta and its major branches: Atherosclerotic calcifications. No aneurysm. Peritoneum/retroperitoneum: Normal. No ascites. No adenopathy. Pelvic structures: Normal. No pelvic lymphadenopathy. Body wall and musculoskeletal: 3.1 cm fat-containing lower anterior abdominal wall ventral hernia Visualized lower thorax: Small left pleural effusion. No pulmonary parenchymal mass or pleural effusion. IMPRESSION: 1. Stable left perinephric hematoma. There is enhancement and excretion of the left kidney but decrea sed function of the left kidney compared to the right. 2. Right adrenal nodule
[2019-05-06 11:17] LABS: Hemoglobin 9.4 g/dL (12.0-16.0); Mean Corpuscular HGB CONC 32.3 g/dL (32.0-36.0); Mean Corpuscular Hemoglobin 29.5 pg (27.0-31.0); Mean Corpuscular Volume 91.4 fL (78.0-98.0); Mean Platelet Volume 8.3 fL (7.4-10.4); Platelet Count 307 thou/uL (130-400); RBC Distribution Width 12.2 % (11.5-14.5); Red Blood Cell (RBC) Count 3.17 mill/uL (4.20-5.40); White Blood Cell (WBC) Count 10.1 thou/uL (4.8-10.8)
[2019-05-06 11:41] LABS: Anion Gap 12 mmol/L (10-20); BUN (Urea Nitrogen) 17 mg/dL (9.8-20.1); Calc. Creatinine Clearance 94 mL/min (70-130); Calcium 9.5 mg/dL (7.8-10.44); Carbon Dioxide 30 mmol/L (23-31); Chloride 100 mmol/L (98-107); Estimated GFR-MDRD 52; Glucose 256 mg/dL (80-115); Potassium 4.9 mmol/L (3.5-5.1); Sodium 137 mmol/L (136-145)
[2019-05-06] MEDS ORDERED: Iopamidol 370 76% 100 ML VIAL ONE (14:51)
--- NOTE | 2019-05-06 15:10 | PRG ---
DATE OF SERVICE: 05/06/2019 Her blood work this morning. Her hemoglobin is 9.4, which is up. Her creatinine is 1.05. She had a noncontrast CAT scan that was delayed because she had received steroids because of contrast allergy. I reviewed the CAT scan with . There is some diminished uptake of contrast and a bit of a decrease in amount of excretion from that kidney. There was no obvious evidence of a mass in that kidney, although with a hematoma, she admits that. The hematoma does not appear that has gotten any larger. There is contrast in the left renal collecting system just is not as much as in the right. There is no hydro, no stone, so based on the CT, she has not had any increase in bleeding. She is not developing an infection related to it. It does not appear that she has at least a large mass or angiomyolipoma that would have bled, so does not give us an answer as to why she bled. In terms of her restarting her blood thinners if there was a way for her to not have to be on blood thinners that would be great as if we do not have a reason as to why she bled then we do not know whether she would just end up bleeding again or not. She will need another scan in probably 4 weeks to 6 weeks to see how much the hematoma resolves and maybe get a little better look at the kidney with that study also. It appears her blood pressure is adequately controlled currently. If she needs to be anticoagulated in preparation for a Watchman procedure probably in a couple of weeks, she could certainly look at trying that with a short-acting blood thinner, but that may be the better way to approach this would be to have her do a procedure that would allow her to be off blood thinners as she is only in her mid 60s and has already had one significant bleed. Job ID: [id number]
--- NOTE | 2019-05-06 16:54 | PDOC.HOSPP ---
- Subjective Encounter Date: 05/06/19 Encounter Time: 16:00 Subjective: CC: hematoma The patient's pain is much better, almost gone. No nausea or vomiting. Hemoglobin stable today - Objective Vital Signs & Weight: Vital Signs (12 hours) Temp Pulse Resp BP Pulse Ox 05/06/19 15:11 98.0 F 62 20 125/68 93 L 05/06/19 11:41 97.7 F 67 17 146/65 H 93 L 05/06/19 08:21 95 05/06/19 07:09 97.7 F 68 17 145/66 H 95 Weight Admit Weight 249 lb Weight 249 lb I&O: 05/05/19 05/06/19 05/07/19 06:59 06:59 06:59 Intake Total 300 3700 Balance 300 3700 Result Diagrams: 05/06/19 11:04 05/06/19 11:04 Additional Labs: Accuchecks 05/06/19 05/06/19 05/06/19 16:37 11:30 05:32 POC Glucose 312 H 275 H 288 H 05/05/19 05/05/19 19:53 17:03 POC Glucose 224 H 221 H Hospitalist ROS - Review of Systems Eyes: denies: pain, vision change Respiratory: denies: cough, dry - Medication Medications: Active Medications Generic Name Dose Route Start Last Admin Trade Name Freq PRN Reason Stop Dose Admin Hydrocodone Bitart/Acetaminophen 1 tab 05/04/19 13:28 05/06/19 04:36 [place] 5/325 PO 1 tab Q6H PRN Administration Mild-Moderate Pain (1-5) Hydrocodone Bitart/Acetaminophen 2 tab 05/04/19 13:28 05/06/19 11:46 [place] 5/325 PO 2 tab Q6H PRN Administration Moderate to Severe Pain (6-10) Amitriptyline HCl 50 mg 05/02/19 21:00 05/05/19 19:51 Elavil PO 50 mg HS LENNOX Administration Atorvastatin Calcium 80 mg 05/02/19 21:00 05/05/19 19:51 Lipitor PO 80 mg HS LENNOX Administration Cholecalciferol 5,000 units 05/03/19 09:00 05/06/19 08:43 Vitamin D3 PO 5,000 units DAILY LENNOX Administration Fish Oil 1,000 mg 05/03/19 09:00 05/06/19 08:44 Fish Oil PO 1,000 mg DAILY LENNOX Administration Gabapentin 600 mg 05/02/19 21:00 05/05/19 19:52 Neurontin PO 600 mg HS LENNOX Administration Sodium Chloride 1,000 mls @ 75 mls/hr 05/03/19 19:30 05/06/19 01:02 Normal Saline 0.9% IV 1,000 mls .[id number] LENNOX Administration Insulin Glargine 12 units/ 0.12 mls @ 0 mls/hr 05/05/19 21:00 05/05/19 19:56 Miscellaneous Medication SC 0.12 mls HS LENNOX Administration Insulin Human Lispro 0 units 05/02/19 13:23 05/06/19 16:47 Humalog SC 5 unit .MILD SLIDING SCALE PRN Administration Mild Correctional Scale Insulin Human Lispro 0 units 05/04/19 20:53 05/04/19 21:56 Humalog SC 3 unit .BEDTIME SLIDING SC PRN Administration Bedtime Correctional Scale Levofloxacin 750 mg 05/06/19 00:00 05/06/19 01:00 Levaquin PO 750 mg 0000 LENNOX Administration Metoprolol Tartrate 12.5 mg 05/04/19 21:00 05/06/19 08:44 Lopressor PO 12.5 mg BID LENNOX Administration Morphine Sulfate 2 mg 05/02/19 17:10 05/05/19 19:51 Morphine SLOW IVP 2 mg Q4H PRN Administration BREAKTHRU PAIN Ondansetron HCl 4 mg 05/02/19 17:10 05/05/19 19:52 Zofran IVP 4 mg Q6H PRN Administration Nausea/Vomiting Senna/Docusate Sodium 1 tab 05/03/19 21:00 05/06/19 08:45 Senokot S PO 1 tab BID LENNOX Administration - Exam General Appearance: NAD, awake alert Eye: PERRL, anicteric sclera ENT: normocephalic atraumatic, no oropharyngeal lesions Neck: no JVD Heart: RRR, no murmur, no gallops, no rubs Respiratory: CTAB, no wheezes, no rales, no ronchi Gastrointestinal: soft Gastrointestinal - other findings: LUQ and LLQ tenderness to light palpation. + CVA tenderness Extremities: no cyanosis, no clubbing, no edema Skin: normal turgor, no lesions, no rashes Hosp A/P - Plan This is a 68 year old female who presented with severe abdominal pain, found to have possible hematoma Left nephric/perinephric hematoma Anemia - hemoglobin stable. CT scan abdomen shows stable size of hematoma - urology recommended needs repeat CT scan in 4 weeks - urine culture growing 10,000 to 25,000 gram negative rods. On levaquin, continue for three more days Atrial fibrillation - hold eliquis for now and aspirin - continue metoprolol - cardiology consulted, may need Watchman Device, recommended EP evaluation tomorrow HTN - increase metoprolol to 25 mg bid - holding amlodipine and lisinopril Diabetes - sliding scale insulin. Continue lantus 12 units DVT prophylaxis: continue SCDS Code status: full code
--- NOTE | 2019-05-06 17:44 | PDOC.CPN ---
- Subjective Date: 05/06/19 Time: 17:42 Interval history: Abdominal pain still there but much improved. - Review of Systems General: denies: fever/chills, weight/appetite/sleep changes, night sweats, fatigue Respiratory: denies: cough, congestion, shortness of breath, exercise intolerance Cardiovascular: denies: chest pain, palpitation, edema, paroxysmal nocturnal dyspnea, orthopnea Gastrointestinal: reports: abd pain. denies: nausea, vomiting, diarrhea, constipation, GI bleeding Musculoskeletal: denies: pain, tenderness, stiffness, swelling, arthritis/ arthralgias Neurological: denies: numbness, syncope, seizure, weakness - Objective Allergies/Adverse Reactions: Allergies Allergy/AdvReac Type Severity Reaction Status Date / Time cephalexin [From Keflex] Allergy Hives Verified 05/03/19 00:49 Iodinated Contrast Media Allergy Rash Verified 05/03/19 00:49 [Iodinated Contrast Media - IV Dye] propoxyphene Allergy Emesis Verified 05/03/19 00:49 Sulfa (Sulfonamide Allergy Rash Verified 05/03/19 00:49 Antibiotics) Visit Medications: Current Medications Hydrocodone Bitart/Acetaminophen ([place] 5/325) 1 tab PO Q6H PRN PRN Reason: Mild-Moderate Pain (1-5) Last Admin: 05/06/19 04:36 Dose: 1 tab Hydrocodone Bitart/Acetaminophen ([place] 5/325) 2 tab PO Q6H PRN PRN Reason: Moderate to Severe Pain (6-10) Last Admin: 05/06/19 11:46 Dose: 2 tab Amitriptyline HCl (Elavil) 50 mg PO HS [facility] Last Admin: 05/05/19 19:51 Dose: 50 mg Atorvastatin Calcium (Lipitor) 80 mg PO HS [facility] Last Admin: 05/05/19 19:51 Dose: 80 mg Cholecalciferol (Vitamin D3) 5,000 units PO DAILY [facility] Last Admin: 05/06/19 08:43 Dose: 5,000 units Dextrose/Water (Dextrose 50%) 25 gm SLOW IVP PRN PRN PRN Reason: Hypoglycemia Fish Oil (Fish Oil) 1,000 mg PO DAILY [facility] Last Admin: 05/06/19 08:44 Dose: 1,000 mg Gabapentin (Neurontin) 600 mg PO [facility] Last Admin: 05/05/19 19:52 Dose: 600 mg Glucagon (Glucagon) 1 mg IM PRN PRN PRN Reason: Hypoglycemia Dextrose/Water (D5w) 1,000 mls @ 0 mls/hr IV .Q0M PRN PRN Reason: Hypoglycemia Sodium Chloride (Normal Saline 0.9%) 1,000 mls @ 75 mls/hr IV .[id number] [facility] Last Admin: 05/06/19 01:02 Dose: 1,000 mls Insulin Glargine 12 units/ (Miscellaneous Medication) 0.12 mls @ 0 mls/hr SC HS [facility] Last Admin: 05/05/19 19:56 Dose: 0.12 mls Insulin Human Lispro (Humalog) 0 units SC .MILD SLIDING SCALE PRN PRN Reason: Mild Correctional Scale Last Admin: 05/06/19 16:47 Dose: 5 unit Insulin Human Lispro (Humalog) 0 units SC .BEDTIME SLIDING SC PRN PRN Reason: Bedtime Correctional Scale Last Admin: 05/04/19 21:56 Dose: 3 unit Levofloxacin (Levaquin) 750 mg PO 0000 [facility] Last Admin: 05/06/19 01:00 Dose: 750 mg Metoprolol Tartrate (Lopressor) 25 mg PO BID [facility] Morphine Sulfate (Morphine) 2 mg SLOW IVP Q4H PRN PRN Reason: BREAKTHRU PAIN Last Admin: 05/05/19 19:51 Dose: 2 mg Ondansetron HCl (Zofran) 4 mg IVP Q6H PRN PRN Reason: Nausea/Vomiting Last Admin: 05/05/19 19:52 Dose: 4 mg Polyethylene Glycol (Miralax) 17 gm PO DAILYPRN PRN PRN Reason: Constipation Senna/Docusate Sodium (Senokot S) 1 tab PO BID [facility] Last Admin: 05/06/19 08:45 Dose: 1 tab Vital Signs & Weight: Vital Signs Temp Pulse Resp BP Pulse Ox 05/06/19 15:11 98.0 F 62 20 125/68 93 L 05/06/19 11:41 97.7 F 67 17 146/65 H 93 L 05/06/19 08:21 95 05/06/19 07:09 97.7 F 68 17 145/66 H 95 Admit Weight 249 lb Weight 249 lb - Physical Exam General: alert & oriented x3 HEENT: mucus membranes moist Neck: supple neck Cardiac: regular rate and rhythm Lungs: normal breath sounds Neuro: grossly intact Abdomen: active bowel sounds Extremities: no edema Skin: clear Musculoskeletal: no pain - Labs Result Diagrams: 05/06/19 11:04 05/06/19 11:04 - Telemetry Sinus rhythms and dysrhythmias: sinus rhythm - Assessment/Plan Assessment/Plan: 1. Spontaneous left renal subscapular hematoma. 2. Paroxysmal afib 3. CAD s/p CABG, stable CAD. 4. Severe s/p Bioprosthetic SVR and eventually TAVR. PLAN: - Not a candidate for Lariat given previous CABG, will consult EP to se if candidate for Watchman. She would need to be able to be on anticoagulation post watchman for 3 months and may be the main issue. - Pending EP consult tomorrow.
[2019-05-06] MEDS: Atorvastatin Calcium 40 MG TAB PO SCH (21:04)
[2019-05-06] MEDS: Insulin Glargine 12 UNITS in Pre-Filled Syringe 1 EACH SC SCH (21:05)
[2019-05-06] MEDS: Gabapentin 300 MG CAP PO SCH (21:05)
[2019-05-06] MEDS: Amitriptyline HCl 25 MG TAB PO SCH (21:05)
[2019-05-07] MEDS: HYDROcodone/Acetaminophen 5/325 mg Tablet PO PRN ×3 (01:01→14:24)
[2019-05-07] MEDS ORDERED: predniSONE 50 MG TAB PO SCH ×3 (04:00→21:30)
[2019-05-07 05:03] LABS: Hemoglobin 9.1 g/dL (12.0-16.0); Mean Corpuscular HGB CONC 33.3 g/dL (32.0-36.0); Mean Corpuscular Hemoglobin 30.4 pg (27.0-31.0); Mean Corpuscular Volume 91.3 fL (78.0-98.0); Mean Platelet Volume 8.3 fL (7.4-10.4); Platelet Count 313 thou/uL (130-400); RBC Distribution Width 12.3 % (11.5-14.5); Red Blood Cell (RBC) Count 2.98 mill/uL (4.20-5.40); White Blood Cell (WBC) Count 12.3 thou/uL (4.8-10.8)
[2019-05-07 05:26] LABS: Anion Gap 13 mmol/L (10-20); BUN (Urea Nitrogen) 20 mg/dL (9.8-20.1); Calc. Creatinine Clearance 108 mL/min (70-130); Calcium 9.1 mg/dL (7.8-10.44); Carbon Dioxide 27 mmol/L (23-31); Chloride 105 mmol/L (98-107); Estimated GFR-MDRD 62; Glucose 161 mg/dL (80-115); Potassium 4.7 mmol/L (3.5-5.1); Sodium 140 mmol/L (136-145)
[2019-05-07] MEDS: Metoprolol Tartrate 25 MG TAB PO SCH ×2 (08:56→20:33)
[2019-05-07] MEDS: Fish Oil 1,000 MG CAP PO SCH (08:56)
[2019-05-07] MEDS: Senokot S 8.6-50 MG TAB PO SCH ×2 (08:56→20:34)
[2019-05-07] MEDS: Sodium Chloride 0.9% 1,000 ML IV SCH ×2 (09:29→12:29)
--- NOTE | 2019-05-07 10:10 | CON ---
DATE OF CONSULTATION: 05/07/2019 HISTORY OF PRESENT ILLNESS: I am seeing Ms. Stroud at our [facility] Telemetry Floor as an electrophysiology consult and her problems are: 1. Paroxysmal atrial fibrillation. 2. CHADS-VASc score of 5 with age, gender, hypertension, diabetes, and coronary vascular disease, previously on Eliquis. a. Eliquis was stopped due to spontaneous perinephric hematoma. Aspirin was stopped. 3. Coronary vascular disease with history of bypass grafting x4 vessels in the past. 4. History of severe aortic stenosis with bioprosthetic aortic valve replacement, requiring TAVR revision in 2017. ALLERGIES: CEPHALEXIN, CONTRAST GIVING RASH, PROPOXYPHENE, AND SULFA. MEDICATIONS: At home, included: 1. Vitamin D3. 2. Tizanidine. 3. Metformin. 4. [place]-3 fish oil supplement. 5. Glipizide 5 mg daily. 6. Amlodipine 10 mg a day. 7. Aspirin. 8. Metoprolol. 9. Eliquis. 10. Omeprazole. 11. Amitriptyline. 12. Tylenol. 13. Atorvastatin. 14. Gabapentin. 15. Isosorbide mononitrate. 16. Lisinopril 40 mg a day. SUBJECTIVE: Ms. Stroud is here due to abdominal pain and she was found to have a left subcapsular renal hematoma with perinephric blood, and therefore, her Eliquis and aspirin were stopped. She also had a hemoglobin drop from 11 to 8. She seems to have stabilized, but difficulty arises with her future management of atrial fibrillation. While in the hospital, she had paroxysmal atrial fibrillation with rapid rates with the abdominal discomfort, but now she is back in sinus rhythm. Currently, she denies PND, orthopnea, or lower extremity edema. No fever, chills, or cough. No stroke-like symptoms. No angina-like discomfort and no additional bleeding issues. REVIEW OF SYSTEMS: Rest of 12-point review of systems otherwise unremarkable. PAST HISTORY: As above, also history of depression. SURGICAL HISTORY: Also includes: 1. Tonsillectomy. 2. Appendectomy. 3. Cholecystectomy. 4. Again coronary artery bypass grafting surgery. 5. Cataract surgery. 6. Cardiac surgery. 7. Hysterectomy. 8. Cancer removal in the uterine area. SOCIAL HISTORY: Prior smoker, currently denies smoking, EtOH, or drug abuse. Quit drinking alcohol in 2001. FAMILY HISTORY: Noncontributory. OBJECTIVE DATA: VITAL SIGNS: Blood pressure is 159/69, heart rate 61, respiratory rate 18, and temperature 97.1 degrees Fahrenheit. GENERAL: This is an alert and oriented woman, in no apparent distress. NECK: Supple. Jugular veins not distended. CHEST: Coarse without crackles. HEART: Sounds are regular to rate and rhythm. A 1/6 holosystolic murmur is heard. No gallop is appreciated. No rub. ABDOMEN: Benign. Bowel sounds positive. Some tenderness noted, especially in the left abdominal area in the flank. EXTREMITIES: Lower extremities without edema, clubbing, or cyanosis. Pulses are adequate. NEUROLOGIC: The patient is nonfocal. MUSCULOSKELETAL: Without joint swelling or deformity. SKIN: Without rash. DATABASE: Lab data reviewed. White count is 12.3, hemoglobin 9.1, platelet count is 313. The initial hemoglobin was 11.7, dropping to 8.8 the lowest during the course of this hospitalization. Sodium 140, potassium 4.7, BUN is 20, and creatinine 0.91. The EKG is reviewed, revealing atrial fibrillation, rate of 145 beats per minute initially on 05/02, QTc is 441 millisecond. Subsequently, rhythm strips revealed resolution of atrial fibrillation and conversion to sinus rhythm without pauses. ASSESSMENT AND PLAN: Ms. Stroud is a pleasant 68-year-old woman with prior history of coronary artery bypass grafting surgery as well as aortic valve surgery with a bypass graft in the past. This had to be revised later in 2017 with a transaortic valve replacement procedure. She also has paroxysmal atrial fibrillation and markedly elevated CHADS-VASc score at 5. She was appropriately on aspirin and Eliquis, but developed a spontaneous perinephric hematoma, which now required stopping both of these antithrombotic agents. Nevertheless, she remains at risk of recurrent atrial fibrillation and related thromboembolism in the future. We discussed the potential use of Watchman device on her condition. At this point, I would like to hold anticoagulant until Nephrology feels as appropriate and make arrangements to have a Watchman device implanted. She may be considered resuming lower dose Eliquis post Watchman device. We will make these arrangements as an outpatient. In the meantime, I think she would benefit from antiarrhythmic agents to suppress atrial fibrillation and minimize her interim atrial fibrillation related thromboembolism. Multaq 400 mg twice a day will be initiated if financially feasible, alternatively that could be amiodarone, although with a higher long-term risk. Risks and benefits discussed. We will follow with you. Thank you for letting me to participate in the care of this patient. Job ID: [id number]
[2019-05-07] MEDS: HumaLOG 300 UNITS/3 ML VIAL SC PRN ×2 (12:31→17:29)
[2019-05-07 13:25] LABS: Hemoglobin 9.5 g/dL (12.0-16.0); Mean Corpuscular HGB CONC 32.3 g/dL (32.0-36.0); Mean Corpuscular Hemoglobin 29.6 pg (27.0-31.0); Mean Corpuscular Volume 91.5 fL (78.0-98.0); Platelet Count 371 thou/uL (130-400); RBC Distribution Width 12.6 % (11.5-14.5); Red Blood Cell (RBC) Count 3.21 mill/uL (4.20-5.40); White Blood Cell (WBC) Count 13.2 thou/uL (4.8-10.8)
[2019-05-07] MEDS ORDERED: Iopamidol 370 76% 100 ML VIAL ONE (13:56)
--- NOTE | 2019-05-07 14:10 | CT ---
CT OF THE ABDOMEN AND PELVIS WITHOUT IV CONTRAST INDICATION: Follow-up perinephric hematoma COMPARISON: CT the abdomen and pelvis with and without contrast dated May 06, 2019 FINDINGS: The lack of IV contrast limits evaluation of the solid organs of the abdomen and pelvis. ABDOMEN: Lung bases: There is a small left pleural effusion appears slightly less prominent than on the prior examination. Prominent mitral annular calcifications and aortic valvular prosthesis is unchanged. There is mild groundglass opacity involving both lungs which may reflect areas of subsegmental volume loss or mild alveolar edema. Liver: No focal lesion. Gallbladder: Surgically absent Pancreas: Normal. Adrenal glands: Bilateral adrenal adenomas are stable Spleen: Splenic granuloma are present. Kidneys and ureters: The left perinephric hematoma is unchanged. There is some residual retained cont rast within the left renal parenchyma from the prior contrast enhanced exam. There is no evidence of a renal collecting injury. The unopacified right kidney is normal-appearing. No hydronephrosis is demonstrated. Vasculature: There are severe vascular calcifications seen involving the visualized vasculature. Lymph nodes:No pathologically enlarged lymph nodes are evident. Free fluid in abdomen:There is mild perinephric stranding surrounding the left kidney. There is some mild stranding seen within the left posterior pararenal space. PELVIS: Small and large bowel: There are scattered colonic diverticula and mild amount retained stool. Small bowel is of normal caliber. There is a fat-containing lower anterior midline abdominal wall hernia. Appendix:Not definitely seen Bladder: Normal. Rectal and perirectal soft tissues:Normal. Reproductive structures: Surgically absent Free fluid in pelvis: No free fluid is evident. Lymphadenopathy pelvis: No lymphadenopathy is evident. Osseous structures: There is a benign appearing hemangioma within the right aspect of L4. No acute fr acture or subluxation demonstrated. There is scattered degenerative and osteoarthritic changes. Soft tissues:Normal. IMPRESSION: 1. Stable left perinephric hematoma. 2. Decrease in size of the small left pleural effusion 3. Mild amount retained stool within the colon.
[2019-05-07] MEDS ORDERED: Hydrocortisone Sod Succ/PF 100 mg/2 ml Vial IVP SCH ×3 (16:30→20:15)
--- NOTE | 2019-05-07 16:41 | PDOC.CPN ---
- Subjective Date: 05/07/19 Time: 16:35 Interval history: She is having more abdominal pain today but her CT abdomen is unchanged. - Review of Systems General: denies: fever/chills, weight/appetite/sleep changes, night sweats, fatigue Respiratory: denies: cough, congestion, shortness of breath, exercise intolerance Cardiovascular: denies: chest pain, palpitation, edema, paroxysmal nocturnal dyspnea, orthopnea Gastrointestinal: reports: abd pain. denies: nausea, vomiting, diarrhea, constipation, GI bleeding Musculoskeletal: denies: pain, tenderness, stiffness, swelling, arthritis/ arthralgias Neurological: denies: numbness, syncope, seizure, weakness - Objective Allergies/Adverse Reactions: Allergies Allergy/AdvReac Type Severity Reaction Status Date / Time cephalexin [From Keflex] Allergy Hives Verified 05/03/19 00:49 Iodinated Contrast Media Allergy Rash Verified 05/03/19 00:49 [Iodinated Contrast Media - IV Dye] propoxyphene Allergy Emesis Verified 05/03/19 00:49 Sulfa (Sulfonamide Allergy Rash Verified 05/03/19 00:49 Antibiotics) Visit Medications: Current Medications Hydrocodone Bitart/Acetaminophen (May 5/325) 1 tab PO Q6H PRN PRN Reason: Mild-Moderate Pain (1-5) Last Admin: 05/07/19 14:24 Dose: 1 tab Hydrocodone Bitart/Acetaminophen (May 5/325) 2 tab PO Q6H PRN PRN Reason: Moderate to Severe Pain (6-10) Last Admin: 05/06/19 18:21 Dose: 2 tab Amitriptyline HCl (Elavil) 50 mg PO HS [facility] Last Admin: 05/06/19 21:05 Dose: 50 mg Atorvastatin Calcium (Lipitor) 80 mg PO HS [facility] Last Admin: 05/06/19 21:04 Dose: 80 mg Cholecalciferol (Vitamin D3) 5,000 units PO DAILY [facility] Last Admin: 05/07/19 08:56 Dose: 5,000 units Dextrose/Water (Dextrose 50%) 25 gm SLOW IVP PRN PRN PRN Reason: Hypoglycemia Diphenhydramine HCl (Benadryl) 50 mg IVP NOW [facility] Stop: 05/07/19 18:45 Famotidine (Pepcid) 20 mg SLOW IVP NOW [facility] Stop: 05/07/19 18:45 Fish Oil (Fish Oil) 1,000 mg PO DAILY [facility] Last Admin: 05/07/19 08:56 Dose: 1,000 mg Gabapentin (Neurontin) 600 mg PO [facility] Last Admin: 05/06/19 21:05 Dose: 600 mg Glucagon (Glucagon) 1 mg IM PRN PRN PRN Reason: Hypoglycemia Hydrocortisone Sodium Succinate (Solu-Cortef) 100 mg IVP NOW [facility] Stop: 05/07/19 18:45 Dextrose/Water (D5w) 1,000 mls @ 0 mls/hr IV .Q0M PRN PRN Reason: Hypoglycemia Sodium Chloride (Normal Saline 0.9%) 1,000 mls @ 75 mls/hr IV .[id number] [facility] Last Admin: 05/07/19 12:29 Dose: Not Given Insulin Glargine 12 units/ (Miscellaneous Medication) 0.12 mls @ 0 mls/hr SC [facility] Last Admin: 05/06/19 21:05 Dose: 0.12 mls Insulin Human Lispro (Humalog) 0 units SC .MILD SLIDING SCALE PRN PRN Reason: Mild Correctional Scale Last Admin: 05/07/19 12:31 Dose: 4 unit Insulin Human Lispro (Humalog) 0 units SC .BEDTIME SLIDING SC PRN PRN Reason: Bedtime Correctional Scale Last Admin: 05/06/19 21:06 Dose: 3 unit Levofloxacin (Levaquin) 750 mg PO 0000 [facility] Last Admin: 05/07/19 00:59 Dose: 750 mg Metoprolol Tartrate (Lopressor) 25 mg PO BID [facility] Last Admin: 05/07/19 08:56 Dose: 25 mg Morphine Sulfate (Morphine) 2 mg SLOW IVP Q4H PRN PRN Reason: BREAKTHRU PAIN Last Admin: 05/05/19 19:51 Dose: 2 mg Ondansetron HCl (Zofran) 4 mg IVP Q6H PRN PRN Reason: Nausea/Vomiting Last Admin: 05/05/19 19:52 Dose: 4 mg Polyethylene Glycol (Miralax) 17 gm PO DAILYPRN PRN PRN Reason: Constipation Senna/Docusate Sodium (Senokot S) 1 tab PO BID [facility] Last Admin: 05/07/19 08:56 Dose: 1 tab Vital Signs & Weight: Vital Signs Temp Pulse Resp BP Pulse Ox 03/19/20 16:00 98.0 F 68 18 172/67 H 97 05/07/19 12:01 98.6 F 60 18 144/62 H 92 L 05/07/19 09:12 92 L 05/07/19 08:46 97.4 F L 63 22 H 172/74 H 92 L Admit Weight 249 lb Weight 249 lb - Physical Exam General: alert & oriented x3 HEENT: mucus membranes moist Neck: supple neck Cardiac: regular rate and rhythm Lungs: clear to auscultation Neuro: grossly intact Abdomen: tender Extremities: no edema Skin: clear Musculoskeletal: no pain - Labs Result Diagrams: 05/07/19 13:16 05/07/19 04:38 - Telemetry Sinus rhythms and dysrhythmias: sinus rhythm - Assessment/Plan Assessment/Plan: 1. Spontaneous left renal subscapular hematoma. 2. Paroxysmal afib 3. CAD s/p CABG, stable CAD. 4. Severe s/p Bioprosthetic SVR and eventually TAVR. PLAN: - EP evaluated and will try to set up for watchman device in the future. - Will start dronedarone. May need to switch to amiodarone if too expensive.
[2019-05-07] MEDS ORDERED: diphenhydrAMINE 50 MG/ML VIAL IVP SCH (16:45)
[2019-05-07] MEDS ORDERED: Famotidine/PF 20 mg/2ml Vial SLOW IVP SCH (16:45)
--- NOTE | 2019-05-07 16:52 | PRG ---
DATE OF SERVICE: 05/07/2019 The patient has been afebrile with stable vital signs. This afternoon, she had an acute increase in her left flank pain. It was problematic enough that there was a concern for re-bleed. CT scan without contrast was done. I reviewed it. It does not appear that the hematoma is changed, but nothing to suggest infection or air around it. Her hemoglobin also did not change. She is feeling a bit better now after being medicated for pain. She has been moving around a lot more in the last couple days and it may be that this is actually just related to some type of musculoskeletal issue. In any event, it does not appear that she has had a bleed causing her pain. I think from my standpoint, she could probably go home at any time that the hospitalist feel if she is ready for. I am going to set up a visit for about a month from now to see her. We will set up another CT scan at that time, and hopefully around that time, she can be looking at getting the Watchman procedure done. Job ID: [id number]
--- NOTE | 2019-05-07 17:12 | PDOC.HOSPP ---
- Subjective Encounter Date: 05/07/19 Encounter Time: 13:00 Subjective: The patient states her pain is even worst today. She said it was almost gone today and then it came back. Patient reports 9/10 pain in the flank area and is currently in tears. No nausea or vomiting - Objective Vital Signs & Weight: Vital Signs (12 hours) Temp Pulse Resp BP Pulse Ox 05/07/19 16:00 98.0 F 68 18 172/67 H 97 05/07/19 12:01 98.6 F 60 18 144/62 H 92 L 05/07/19 09:12 92 L 05/07/19 08:46 97.4 F L 63 22 H 172/74 H 92 L Weight Admit Weight 249 lb Weight 249 lb I&O: 05/06/19 05/07/19 05/08/19 06:59 06:59 06:59 Intake Total 3700 2100 Balance 3700 2100 Result Diagrams: 05/07/19 13:16 05/07/19 04:38 Additional Labs: Accuchecks 05/07/19 05/07/19 05/07/19 16:56 10:53 05:50 POC Glucose 275 H 298 H 179 H 05/06/19 21:08 POC Glucose 263 H Hospitalist ROS - Review of Systems Respiratory: denies: cough, dry Cardiovascular: denies: chest pain - Medication Medications: Active Medications Generic Name Dose Route Start Last Admin Trade Name Freq PRN Reason Stop Dose Admin Hydrocodone Bitart/Acetaminophen 1 tab 05/04/19 13:28 05/07/19 14:24 [place] 5/325 PO 1 tab Q6H PRN Administration Mild-Moderate Pain (1-5) Hydrocodone Bitart/Acetaminophen 2 tab 05/04/19 13:28 05/06/19 18:21 [place] 5/325 PO 2 tab Q6H PRN Administration Moderate to Severe Pain (6-10) Amitriptyline HCl 50 mg 05/02/19 21:00 05/06/19 21:05 Elavil PO 50 mg HS [facility] Administration Atorvastatin Calcium 80 mg 05/02/19 21:00 05/06/19 21:04 Lipitor PO 80 mg HS [facility] Administration Cholecalciferol 5,000 units 05/03/19 09:00 05/07/19 08:56 Vitamin D3 PO 5,000 units DAILY [facility] Administration Diphenhydramine HCl 50 mg 05/07/19 16:45 05/07/19 16:55 Benadryl IVP 05/07/19 18:45 50 mg NOW [facility] Administration Famotidine 20 mg 05/07/19 16:45 05/07/19 16:55 Pepcid SLOW IVP 05/07/19 18:45 20 mg NOW [facility] Administration Fish Oil 1,000 mg 05/03/19 09:00 05/07/19 08:56 Fish Oil PO 1,000 mg DAILY [facility] Administration Gabapentin 600 mg 05/02/19 21:00 05/06/19 21:05 Neurontin PO 600 mg HS [facility] Administration Hydrocortisone Sodium Succinate 100 mg 05/07/19 16:45 05/07/19 16:55 Solu-Cortef IVP 05/07/19 18:45 100 mg NOW [facility] Administration Sodium Chloride 1,000 mls @ 75 mls/hr 05/03/19 19:30 05/07/19 12:29 Normal Saline 0.9% IV Not Given .[id number] [facility] Insulin Glargine 12 units/ 0.12 mls @ 0 mls/hr 05/05/19 21:00 05/06/19 21:05 Miscellaneous Medication SC 0.12 mls HS [facility] Administration Insulin Human Lispro 0 units 05/02/19 13:23 05/07/19 12:31 Humalog SC 4 unit .MILD SLIDING SCALE PRN Administration Mild Correctional Scale Insulin Human Lispro 0 units 05/04/19 20:53 05/06/19 21:06 Humalog SC 3 unit .BEDTIME SLIDING SC PRN Administration Bedtime Correctional Scale Levofloxacin 750 mg 05/06/19 00:00 05/07/19 00:59 Levaquin PO 750 mg 0000 [facility] Administration Metoprolol Tartrate 25 mg 05/06/19 21:00 05/07/19 08:56 Lopressor PO 25 mg BID [facility] Administration Morphine Sulfate 2 mg 05/02/19 17:10 05/05/19 19:51 Morphine SLOW IVP 2 mg Q4H PRN Administration BREAKTHRU PAIN Ondansetron HCl 4 mg 05/02/19 17:10 05/05/19 19:52 Zofran IVP 4 mg Q6H PRN Administration Nausea/Vomiting Senna/Docusate Sodium 1 tab 05/03/19 21:00 05/07/19 08:56 Senokot S PO 1 tab BID [facility] Administration - Exam General Appearance: NAD, awake alert Eye: PERRL, anicteric sclera ENT: normocephalic atraumatic, no oropharyngeal lesions Neck: supple, no JVD Heart: RRR, no murmur, no gallops, no rubs Respiratory: CTAB, no wheezes, no rales, no ronchi Gastrointestinal: soft, non-distended, normal bowel sounds Gastrointestinal - other findings: severe CVA tenderness, LUQ and LLQ tendenress to light plapation Extremities: no cyanosis, no clubbing, no edema Skin: normal turgor, no lesions, no rashes Neurological: cranial nerve grossly intact, normal sensation to touch, no focal deficits, no new deficit Musculoskeletal: normal tone, normal strength, no muscle wasting Psychiatric: normal affect, normal behavior, A&O x 3 Hosp A/P - Plan This is a 68 year old female who presented with severe abdominal pain, found to have possible hematoma Left nephric/perinephric hematoma Anemia - repeat CBC shows stable hemoglobin. CT abdomen repeated 05/05 and 05/06 shows stable size of hematoma. Spoke to Dr. Ga and urology, will do CTA of the abdomen to evaluate for bleeding - urine culture growing 10,000 to 25,000 gram negative rods. On levaquin, continue for two more days Leukocytosis - slightly increase to 12. will monitor for fevers, already on antibiotics Atrial fibrillation - hold eliquis for now and aspirin - continue metoprolol. - cardiology consulted, may need Watchman Device, Dr. Grimes consulted, will consider starting amiodarone HTN - continue metoprolol 25 mg bid - holding amlodipine and lisinopril Diabetes - sliding scale insulin. Continue lantus 12 units DVT prophylaxis: continue SCDS Code status: full code
[2019-05-07] MEDS: Dronedarone HCl 400 MG TAB PO SCH (17:30)
--- NOTE | 2019-05-07 18:10 | CT ---
CTA OF THE ABDOMEN AND PELVIS WITH IV CONTRAST AND 3D REFORMATTED IMAGIN05/07/19 COMPARISON: Noncontrast CT of the abdomen and pelvis dated 05/07/[address] of the abdomen and pelvis dated 05/02/19. FINDINGS: Left sided perinephric hematoma is stable appearing. No definite active extravasation is noted. No de finite solid renal lesion is grossly evident within the limitations of the exam. There is mild narrow ing involving the proximal right renal artery. The celiac and SMA are patent. The CHANTELL is patent. Ther e is moderate narrowing involving the proximal common iliac arteries bilaterally. Right external arsh c artery and right common femoral artery are patent. The left external iliac artery is patent. The le ft common femoral artery and femoral artery bifurcation is patent. Small left pleural effusion is stable appearing. There are numerous calcified granuloma within the sp иван. The gallbladder is surgically absent. The adrenal adenomas are stable appearing. The pancreas is unremarkable appearing. Anterior abdominal wall hernia is unchanged. No acute osseous abnormality is evident. IMPRESSION: 1. No active arterial extravasation demonstrated involving the left kidney. Large left perinephr ic hematoma is similar appearing. No definite enhancing lesion is grossly evident. Would recommend ti me for the left perinephric hematoma to resolve and then perform a follow-up renal mass imaging CT st udy to evaluate for underlying mass as the perinephric hematoma may obscure an exophytic mass lesion. 2. Small left pleural effusion. 3. Mild narrowing involving the origin of the right renal artery. Moderate narrowing involving t he proximal aspect of both common iliac arteries. 4. Other chronic findings as above. POS: BH
[2019-05-07] MEDS ORDERED: diphenhydrAMINE 12.5 MG/5 ML UDCUP PO SCH (20:15)
[2019-05-07] MEDS: Gabapentin 300 MG CAP PO SCH (20:32)
[2019-05-07] MEDS: Atorvastatin Calcium 40 MG TAB PO SCH (20:32)
[2019-05-07] MEDS: Amitriptyline HCl 25 MG TAB PO SCH (20:33)
[2019-05-07] MEDS: Morphine 2 MG/ML SYRINGE SLOW IVP PRN (20:38)
[2019-05-07] MEDS: Insulin Glargine 12 UNITS in Pre-Filled Syringe 1 EACH SC SCH (21:45)
[2019-05-08] MEDS: HYDROcodone/Acetaminophen 5/325 mg Tablet PO PRN ×3 (00:57→12:54)
[2019-05-08] MEDS: Sodium Chloride 0.9% 1,000 ML IV SCH ×2 (00:58→12:03)
[2019-05-08] MEDS ORDERED: predniSONE 50 MG TAB PO SCH (04:00)
[2019-05-08] MEDS ORDERED: diphenhydrAMINE 50 MG CAP PO SCH (04:00)
[2019-05-08 04:41] LABS: Hemoglobin 8.5 g/dL (12.0-16.0); Mean Corpuscular HGB CONC 31.7 g/dL (32.0-36.0); Mean Corpuscular Hemoglobin 28.9 pg (27.0-31.0); Mean Corpuscular Volume 91.1 fL (78.0-98.0); Mean Platelet Volume 8.1 fL (7.4-10.4); Platelet Count 334 thou/uL (130-400); RBC Distribution Width 12.3 % (11.5-14.5); Red Blood Cell (RBC) Count 2.93 mill/uL (4.20-5.40); White Blood Cell (WBC) Count 11.8 thou/uL (4.8-10.8)
[2019-05-08] MEDS: Senokot S 8.6-50 MG TAB PO SCH (08:17)
[2019-05-08] MEDS: Fish Oil 1,000 MG CAP PO SCH (08:17)
[2019-05-08] MEDS: Dronedarone HCl 400 MG TAB PO SCH (08:18)
[2019-05-08] MEDS: Metoprolol Tartrate 25 MG TAB PO SCH (08:18)
[2019-05-08 10:53] LABS: Hemoglobin 8.9 g/dL (12.0-16.0); Mean Corpuscular HGB CONC 32.1 g/dL (32.0-36.0); Mean Corpuscular Hemoglobin 29.3 pg (27.0-31.0); Mean Corpuscular Volume 91.2 fL (78.0-98.0); Mean Platelet Volume 7.8 fL (7.4-10.4); Platelet Count 346 thou/uL (130-400); RBC Distribution Width 12.5 % (11.5-14.5); Red Blood Cell (RBC) Count 3.02 mill/uL (4.20-5.40); White Blood Cell (WBC) Count 13.5 thou/uL (4.8-10.8)
[2019-05-08 11:25] VITALS: BP 158/69; TEMP 97.9
--- NOTE | 2019-05-08 13:53 | PDOC.CPN ---
- Subjective Date: 05/08/19 Time: 13:51 Interval history: She is doing much better. Her abdominal pain has improved. - Review of Systems General: denies: fever/chills, weight/appetite/sleep changes, night sweats, fatigue Respiratory: denies: cough, congestion, shortness of breath, exercise intolerance Cardiovascular: denies: chest pain, palpitation, edema, paroxysmal nocturnal dyspnea, orthopnea Gastrointestinal: denies: nausea, vomiting, diarrhea, constipation, abd pain, GI bleeding Musculoskeletal: denies: pain, tenderness, stiffness, swelling, arthritis/ arthralgias Neurological: denies: numbness, syncope, seizure, weakness - Objective Allergies/Adverse Reactions: Allergies Allergy/AdvReac Type Severity Reaction Status Date / Time cephalexin [From Keflex] Allergy Hives Verified 05/03/19 00:49 Iodinated Contrast Media Allergy Rash Verified 05/03/19 00:49 [Iodinated Contrast Media - IV Dye] propoxyphene Allergy Emesis Verified 05/03/19 00:49 Sulfa (Sulfonamide Allergy Rash Verified 05/03/19 00:49 Antibiotics) Visit Medications: Current Medications Hydrocodone Bitart/Acetaminophen ([place] 5/325) 1 tab PO Q6H PRN PRN Reason: Mild-Moderate Pain (1-5) Last Admin: 05/08/19 12:54 Dose: 1 tab Hydrocodone Bitart/Acetaminophen ([place] 5/325) 2 tab PO Q6H PRN PRN Reason: Moderate to Severe Pain (6-10) Last Admin: 05/08/19 06:43 Dose: 2 tab Amitriptyline HCl (Elavil) 50 mg PO [facility] Last Admin: 05/07/19 20:33 Dose: 50 mg Atorvastatin Calcium (Lipitor) 80 mg PO [facility] Last Admin: 05/07/19 20:32 Dose: 80 mg Cholecalciferol (Vitamin D3) 5,000 units PO DAILY [facility] Last Admin: 05/08/19 08:17 Dose: 5,000 units Dextrose/Water (Dextrose 50%) 25 gm SLOW IVP PRN PRN PRN Reason: Hypoglycemia Dronedarone (Multaq) 400 mg PO BID-[facility] Last Admin: 05/08/19 08:18 Dose: 400 mg Fish Oil (Fish Oil) 1,000 mg PO DAILY [facility] Last Admin: 05/08/19 08:17 Dose: 1,000 mg Gabapentin (Neurontin) 600 mg PO [facility] Last Admin: 05/07/19 20:32 Dose: 600 mg Glucagon (Glucagon) 1 mg IM PRN PRN PRN Reason: Hypoglycemia Dextrose/Water (D5w) 1,000 mls @ 0 mls/hr IV .Q0M PRN PRN Reason: Hypoglycemia Sodium Chloride (Normal Saline 0.9%) 1,000 mls @ 75 mls/hr IV .[id number] [facility] Last Admin: 05/08/19 12:03 Dose: Not Given Insulin Glargine 12 units/ (Miscellaneous Medication) 0.12 mls @ 0 mls/hr SC [facility] Last Admin: 05/07/19 21:45 Dose: 0.12 mls Insulin Human Lispro (Humalog) 0 units SC .MILD SLIDING SCALE PRN PRN Reason: Mild Correctional Scale Last Admin: 05/07/19 17:29 Dose: 4 unit Insulin Human Lispro (Humalog) 0 units SC .BEDTIME SLIDING SC PRN PRN Reason: Bedtime Correctional Scale Last Admin: 05/06/19 21:06 Dose: 3 unit Levofloxacin (Levaquin) 750 mg PO 0000 [facility] Last Admin: 05/08/19 00:57 Dose: 750 mg Metoprolol Tartrate (Lopressor) 25 mg PO BID [facility] Last Admin: 05/08/19 08:18 Dose: 25 mg Morphine Sulfate (Morphine) 2 mg SLOW IVP Q4H PRN PRN Reason: BREAKTHRU PAIN Last Admin: 05/07/19 20:38 Dose: 2 mg Ondansetron HCl (Zofran) 4 mg IVP Q6H PRN PRN Reason: Nausea/Vomiting Last Admin: 05/05/19 19:52 Dose: 4 mg Polyethylene Glycol (Miralax) 17 gm PO DAILYPRN PRN PRN Reason: Constipation Senna/Docusate Sodium (Senokot S) 1 tab PO BID [facility] Last Admin: 05/08/19 08:17 Dose: 1 tab Vital Signs & Weight: Vital Signs Temp Pulse Resp BP Pulse Ox 05/08/19 11:22 97.9 F 57 L 15 158/69 H 99 05/08/19 09:52 155/67 H 05/08/19 08:19 96 05/08/19 08:05 97.6 F 64 18 196/81 H 96 05/08/19 03:40 98.7 F 65 20 184/71 H 92 L Admit Weight 249 lb Weight 250 lb 8 oz - Physical Exam General: alert & oriented x3 HEENT: mucus membranes moist Neck: supple neck Cardiac: regular rate and rhythm Lungs: normal breath sounds Neuro: grossly intact Abdomen: active bowel sounds Extremities: no edema Skin: clear Musculoskeletal: no pain - Labs Result Diagrams: 05/08/19 10:32 05/07/19 04:38 - Telemetry Sinus rhythms and dysrhythmias: sinus rhythm - Assessment/Plan Assessment/Plan: 1. Spontaneous left renal subscapular hematoma. 2. Paroxysmal afib 3. CAD s/p CABG, stable CAD. 4. Severe s/p Bioprosthetic SVR and eventually TAVR. PLAN: - EP evaluated and will try to set up for watchman device in the future. - Will start dronedarone. May need to switch to amiodarone if too expensive. - Continue to hold Eliquis for now. Will defer to Urology for timing of restarting aspirin. - May discharge home at any time from cardiac perspective. - Will follow up in 1-2 months in the office.
--- NOTE | 2019-05-08 15:13 | PDOC.EP ---
- Subjective Date: 05/08/19 Time: 10:00 Interval History: follow up for OAC and AF management. On Multaq. DC pending. Voices no complaints - Review of Systems Constitutional: denies: chills, fever, malaise, sweats, weakness, other Respiratory: denies: cough, dry, hemoptysis, pleuritic pain Cardiology: denies: chest pain, edema, heart racing, light headedness Gastrointestinal: denies: abdominal pain, constipation, diarrhea Musculoskeletal: denies: unstable gait, falls - Objective Allergies/Adverse Reactions: Allergies Allergy/AdvReac Type Severity Reaction Status Date / Time cephalexin [From Keflex] Allergy Hives Verified 05/03/19 00:49 Iodinated Contrast Media Allergy Rash Verified 05/03/19 00:49 [Iodinated Contrast Media - IV Dye] propoxyphene Allergy Emesis Verified 05/03/19 00:49 Sulfa (Sulfonamide Allergy Rash Verified 05/03/19 00:49 Antibiotics) Vital Signs & Weight: Vital Signs Temp Pulse Resp BP Pulse Ox 05/08/19 11:22 97.9 F 57 L 15 158/69 H 99 05/08/19 09:52 155/67 H 05/08/19 08:19 96 05/08/19 08:05 97.6 F 64 18 196/81 H 96 05/08/19 03:40 98.7 F 65 20 184/71 H 92 L Admit Weight 249 lb Weight 250 lb 8 oz I/O: I/O 05/07/19 05/08/19 05/09/19 06:59 06:59 06:59 Intake Total 2099 1919 Output Total 0 Balance 2099 1919 - Quality Measures Condition: Atrial Fibrillation/Flutter (hx or current) - Medication Contraindications No Anticoagulant reason: Anticoagulant not tolerated - Physical Exam General: alert & oriented x3, appears well, no apparent distress, speech clear, affect appropriate HEENT: mucus membranes moist, normocephaly Neck: supple neck, midline trachea, no JVD/HJR, no masses, no bruit, no lymphadenopathy, no thromegaly Cardiology: regular rate and rhythm, PMI nondisplaced Lungs: clear to auscultation, normal breath sounds, no wheeze, rales, rhonchi Neurology: cranial nerve 2-12 intact, sensory function intact - Labs Result Diagrams: 05/08/19 10:32 05/07/19 04:38 - EKG Interpretation EKG Method: Telemetry EKG shows: Sinus rhythm - Assessment/Plan Assessment/Plan: 1. Atrial fibrillation -in SR on multaq. Avoid additional QT prolonging agents. Last dose of Levaquin tonight 2. OAC indicated, chads vasc of 5 - currently on hold due to perniphric hematoma Ms. Stroud is a pleasant 68-year-old woman with prior history of coronary artery bypass grafting surgery as well as aortic valve surgery with a bypass graft in the past. This had to be revised later in 2017 with a transaortic valve replacement procedure. She also has paroxysmal atrial fibrillation and markedly elevated CHADS-VASc score at 5. She was appropriately on aspirin and Eliquis, but developed a spontaneous perinephric hematoma, which now required stopping both of these antithrombotic agents. When nephrology feels hematoma issue is resolved and OAC can be resumed we can begin workup for watchman implant as it requires at least low dose eliquis for a minimum of 6 weeks post implant. Multaq 400 mg twice a day was iniitiated for suppressive therapy while no OAC can be given. Alternatively, amiodarone could be used for a short time
--- NOTE | 2019-05-08 18:05 | DIS ---
DATE OF ADMISSION: 05/02/2019 DATE OF DISCHARGE: 05/08/2019 CONSULTATIONS: Urology with Dr. Dewayne Quijano, Cardiology with Dr. Sukhdeep Stevenson, and Dr. Andrea Grimes with Electrophysiology. PROCEDURES: None. BRIEF HISTORY OF PRESENT ILLNESS: This is a 68-year-old female with a past medical history of atrial fibrillation, depression, hypertension, diabetes, who presented with abdominal pain for the past 2 months that was intermittent. The patient states her pain got so severe the night before that she decided to come to the hospital. Her pain was primarily in the left upper quadrant and left flank area. Upon arrival to the emergency room, the patient had a white count of 15. Initial CT abdomen showed possible pyelonephritis, but later it was thought that her findings are more consistent with a hematoma. Her UA was unremarkable, but she was given IV Levaquin and treated for possible pyelonephritis empirically, pending further workup. HOSPITAL COURSE: 1. Left perinephric hematoma: Her aspirin and Eliquis were discontinued. The patient was monitored in the hospital with serial hemoglobin and hematocrit. Her hemoglobin and hematocrit continued to drop on a daily basis. She eventually had a repeat CT scan of her abdomen on the which showed stable size of hematoma. Eventually her pain had gotten better, but on the , she had another episode of recurrent flank pain that was very severe and brought her to tears. She underwent a repeat CT scan of her abdomen which again showed stable size of hematoma. CTA angio pelvis showed no active extravasation. On the day of discharge, patient has improvement in her pain. Urology recommended the patient get a repeat CT scan in 6 weeks for followup of resolution of her hematoma. . She was given a script for tramadol for a few days. Mass WELDER/INSTALLER was checked and patient was previously taking tylenol three but she stated she had no relief with this. She was advised not to take both together or on the same day. She did have a urine culture done that grew 10,000 to 25,000 E coli and Klebsiella. Although this was not significant, she was treated with a course of Levaquin until the due to her significant pain. 2. Leukocytosis: The patient had fluctuation in her white count with her white count down to 10 on the , which increased to 12 on the . She had no fevers. She was treated for possible pyelonephritis with Levaquin, although her urine culture was borderline. She should have repeat CBC as an outpatient and have her white count repeated. 3. Atrial fibrillation: The patient was on Eliquis, aspirin, and metoprolol. Cardiology was consulted, given the fact that the patient would not be able to resume her aspirin or Eliquis due to her hematoma. They felt that the patient may need a Watchman implant. She was initiated on amiodarone 400 mg twice daily for now. Eventually, she should follow up with her outpatient meterman, Dr. Stevenson and when it is appropriate from a urologic standpoint, resume on her aspirin and Eliquis, and she will need Eliquis for a minimum of 6 weeks post implant. 4. Hypertension: She was continued on metoprolol 25 mg b.i.d. Her amlodipine was discontinued and her lisinopril was held due to acute kidney injury upon presentation. 5. BHANU: The patient did have an acute kidney injury with creatinine peak at 1.32 on the . This improved with IV hydration. Her lisinopril was held on discharge. 6. Anemia: The patient did have a hemoglobin of 9.1 on the day prior to discharge. She did have B12 and folate levels checked, which were normal. She should follow up with her PCP in a week and have a repeat CBC done to monitor her anemia 7. Acute hypoxic respiratory failure: The patient did have low O2 saturations of 87% to 88% on room air and required 1 to 2 L of oxygen. This was most likely secondary to abdominal pain and the patient taking shallow breaths. DISCHARGE PHYSICAL EXAMINATION: VITAL SIGNS: Temperature 97.9, heart rate 57, respiratory rate 15, O2 saturation 99% on room air, blood pressure 158/69. GENERAL: The patient is alert, awake, and oriented x3. CVS: Regular rate and rhythm with no murmurs, rubs, or gallops. LUNGS: Clear to auscultation bilaterally. ABDOMEN: The patient has left upper quadrant, left lower quadrant, and CVA tenderness to mild palpation. No rebound, guarding, or rigidity. EXTREMITIES: No significant edema. The patient is also morbidly obese. PERTINENT LABORATORY DATA: CBC on 05/06: White count 12.3, hemoglobin 9.1, hematocrit 27.2, platelet count 313. BMP on 05/06: Normal. UA on 05/01: Glucose 100, trace blood, 1+ bacteria, 0 to 3 white blood cells. IMAGING: CT abdomen and pelvis on 04/30: Tiny nonobstructing calculus within the posterior calyx of the right kidney, greater than 0.2 cm in diameter. There is an 8.9 cm nephric/perinephric hematoma . CT abdomen and pelvis on 05/05: Stable left perinephric hematoma. Right adrenal nodule. CT abdomen and pelvis on 05/06: Stable left perinephric hematoma. Decrease in size of small left pleural effusion. Mild amount of retained stool within the colon. CTA abdomen and pelvis on 05/06: Large left perinephric hematoma. Small left pleural effusion. Mild narrowing involving the origin of the right renal artery. Moderate narrowing involving the proximal aspect of both common iliac arteries. DISCHARGE CONDITION: Stable. ACTIVITY: As tolerated. DIET: Heart healthy diet. DISCHARGE INSTRUCTIONS: The patient is to follow up with her PCP in a week and have a repeat CBC. She should have a repeat CT scan of her abdomen and pelvis in 4 to 6 weeks. She should follow up with Dr. Stevenson in a week for discussion about plan for implantation of a Watchman device for her atrial fibrillation. Job ID: [id number] MTDD
--- NOTE | 2019-05-12 09:54 | PQF ---
BENNETT DING LUCIA DUARTE [id number] CLINICAL DOCUMENTATION CLARIFICATION FORM: POST DISCHARGE Addendum to original discharge summary date: ____ Late entry note date: __ DATE:05/12/2019 ATTN:LUCIA DUARTE Please exercise your independent, professional judgment in responding to the clarification form. Clinical indicators are provided on the bottom of this form for your review Please check appropriate box(s): kindly clarify the perinephric hematoma etiology [x ] Left perinephric hematoma due to Eliquis [ ] Left perinephric hematoma not due to Eliquis [ ] Other diagnosis [ ] Unable to determine For continuity of documentation, please document condition throughout progress notes and discharge summary. Thank You. CLINICAL INDICATORS - SIGNS / SYMPTOMS / LABS left renal subscapular renal hematoma-Documented in Cardiology progree note on 05/07 by Sukhdeep Stevenson MD Paroxysmal atrial fibrillation-Documented in Cardiology progree note on 05/07 by Sukhdeep Stevenson MD Left perinephric hematoma ;Her aspirin and eliquis were discontinued - Documented in Discharge summary on 05/07 by Lucia Duarte MD The patient was on eliquis , aspirin and metoprolol, cardiology was consulted , given the fact that the patient would not be able to resume her aspirine or eliquis due to her hematoma -Documented in Discharge summary on 05/07 by Lucia Duarte MD RISK FACTORS The patient was on eliquis -Documented in Discharge summary on 05/07 by Lucia Duarte MD TREATMENTS: Continue to hold eliquis for now--Documented in Cardiology progress note on by Sukhdeep Stevenson MD CT scan of her abdomen on the -Documented in Discharge summary on 05/07 by Lucia Duarte MD Urology recommended the patient get a repeat CT scan in 6 weeks for followup of resolution of her hematoma-Documented in Discharge summary on 05/07 by Lucia Duarte MD She was given a script for tramadol for a few days -Documented in Discharge summary on 05/07 by Lucia Duarte MD [employer] Finish Open[employer] Winform Viewer (This form is maintained as a part of the permanent medical record) 2014 [employer], [employer]. All Rights Reserved [email or web address]
== END 2019-05-08 14:51 | disposition home or self-care (01) | DRG 813 ==
LOC: ERS 23:24 → T4-B 05-02 02:20 → 2NO 05-04 00:52
PROVIDERS: ADMIT Internal Medicine; ATTEND Internal Medicine
DX: D68.318 Other hemorrhagic disorder due to intrinsic circulating anticoagulants, antibodies, or inhibitors (principal); J96.01 Acute respiratory failure with hypoxia; N17.9 Acute kidney failure, unspecified; N12 Tubulo-interstitial nephritis, not specified as acute or chronic; N28.9 Disorder of kidney and ureter, unspecified; D64.9 Anemia, unspecified; B96.20 Unspecified Escherichia coli [E. coli] as the cause of diseases classified elsewhere; F32.9 Major depressive disorder, single episode, unspecified; E78.5 Hyperlipidemia, unspecified; E11.9 Type 2 diabetes mellitus without complications; G47.33 Obstructive sleep apnea (adult) (pediatric); I48.0 Paroxysmal atrial fibrillation; Z87.891 Personal history of nicotine dependence; Z90.710 Acquired absence of both cervix and uterus; Z90.49 Acquired absence of other specified parts of digestive tract; Z80.8 Family history of malignant neoplasm of other organs or systems; Z95.4 Presence of other heart-valve replacement; T45.515A Adverse effect of anticoagulants, initial encounter
CPT/HCPCS: 36415; 36416; 74174; 74176; 74178; 80048; 80053; 81003; 81015; 82607; 82728; 82746; 83540; 83550; 83605; 83690; 83735; 85025; 85027; 87077; 87086; 87186; 87804; 93005; 93010; 93306; 96365; 96366; 96375; J1160; J1200; J1720; J1815; J1956; J2270; J2405; J3010; J7512; Q0163; Q9967; S0028

== ENCOUNTER 2019-11-25 06:24 | Emergency (ER) | payer MEDICARE ==
[2019-11-25 06:49] LABS: #Basophils 0.1 thou/uL (0.0-0.2); #Eosinphils 0.2 thou/uL (0.0-0.7); #Lymphocytes 3.2 thou/uL (1.20-3.40); #Monocytes 0.8 thou/uL (0.11-0.59); #Neutrophils 7.1 thou/uL (1.40-6.50); %Basophils 0.6 % (0.0-1.0); %Eosinophils 2.1 % (0.0-10.0); %Monocytes 6.9 % (0.0-10.0); %Neutrophils 62.4 % (42.0-75.0); Hemoglobin 15.4 g/dL (12.0-16.0); Mean Corpuscular HGB CONC 32.6 g/dL (32.0-36.0); Mean Corpuscular Hemoglobin 29.8 pg (27.0-31.0); Mean Corpuscular Volume 91.5 fL (78.0-98.0); Mean Platelet Volume 9.9 fL (7.4-10.4); Platelet Count 223 thou/uL (130-400); RBC Distribution Width 12.8 % (11.5-14.5); Red Blood Cell (RBC) Count 5.16 mill/uL (4.20-5.40); White Blood Cell (WBC) Count 11.3 thou/uL (4.8-10.8)
[2019-11-25 07:10] LABS: ALT (SGPT) 25 U/L (8-55); AST (SGOT) 27 U/L (5-34); Albumin 4.7 g/dL (3.4-4.8); Alkaline Phosphatase 112 U/L (40-110); Anion Gap 18 mmol/L (10-20); BUN (Urea Nitrogen) 22 mg/dL (9.8-20.1); Bilirubin, Total 0.5 mg/dL (0.2-1.2); Calc. Creatinine Clearance 0 mL/min (70-130); Calcium 9.6 mg/dL (7.8-10.44); Carbon Dioxide 26 mmol/L (23-31); Chloride 100 mmol/L (98-107); Estimated GFR-MDRD 44; Globulin 3.7 g/dL (2.4-3.5); Glucose 192 mg/dL (80-115); Potassium 4.3 mmol/L (3.5-5.1); Protein, Total 8.4 g/dL (6.0-8.3); Sodium 140 mmol/L (136-145)
[2019-11-25 07:31] LABS: CKMB 1.3 ng/mL (0-6.6)
--- NOTE | 2019-11-25 07:41 | RAD ---
Chest one view HISTORY: Chest pain. Palpitations. COMPARISON: 10/03/2016. FINDINGS: Cardiac silhouette is magnified by projection. Pulmonary vasculature is unremarkable. Mediastinum is midline with aortic calcification and postoperative changes. Electronic monitoring dev ice overlies the left chest wall. No lobar consolidation or evidence of pneumothorax. Postoperative changes of the left neck and left upper chest apparent. Degenerative changes of the lef t shoulder. IMPRESSION : Atherosclerosis. No active cardiopulmonary abnormalities are otherwise demonstrated.
--- NOTE | 2019-11-26 15:43 | CON ---
DATE OF CONSULTATION: 11/25/2019 REASON FOR CONSULTATION: Atrial arrhythmia. HISTORY OF PRESENT ILLNESS: Kristen Adorno is a 69-year-old female patient who is seen today in consultation at the request of Dr. George. The patient has a history of paroxysmal atrial fibrillation and was previously maintained on Multaq for suppressive therapy. Because of documented perinephric hematoma, she was not thought to be a good candidate for long-term oral anticoagulation therapy. She was taken to the electrophysiology lab by Dr. Nunez in October of this year and underwent pulmonary venous antrum isolation. At that time, all 4 pulmonary veins and the left atrial posterior wall were isolated. She then underwent implantation of a left atrial appendage occluder based on the Watchman protocol. Postprocedure, her Multaq was discontinued. According to the patient, she awoke at 4:30 this morning with chest discomfort and associated palpitations. She was brought to the emergency room, and her EKG was consistent with atypical atrial flutter and rapid ventricular response at about 137 beats per minute. She was given intravenous Cardizem and spontaneously converted back to sinus mechanism. At this time, the patient reports that she feels much better. Her EKG is consistent with normal sinus rhythm at about 70 beats per minute. She denies any progressively worsening dyspnea on exertion, paroxysmal nocturnal dyspnea, or orthopnea. Her chest x-ray today was within normal limits. She has been taking her Eliquis 5 mg p.o. b.i.d. as directed. PAST MEDICAL HISTORY: 1. 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 She required TAVR revision in 2017. 2. Atherosclerotic cardiovascular disease, status post previous coronary artery bypass grafting. 3. History of depression. 4. Obesity. 5. Gastroesophageal reflux disease. 6. History of preserved left ventricular ejection fraction at 55% to 60%. 7. Dyslipidemia. 8. Hypertension. 9. History of perinephric hematoma, making her a poor candidate for chronic oral anticoagulation therapy. She had a followup CT, and there was no further bleeding in the kidneys. 10. Obstructive sleep apnea, currently utilizing CPAP. 11. Type 2 diabetes mellitus. 12. History of paroxysmal atrial fibrillation, status post pulmonary venous antrum isolation on 11/17/2019. 13. Status post left atrial appendage occluder based on the Watchman protocol on 11/17/[address] Kevon Nunez. ALLERGIES/INTOLERANCES: 1. Cephalosporins. 2. Iodine. 3. Sulfa drugs. HOME MEDICATIONS: 1. Amitriptyline 50 mg daily. 2. Aspirin 325 mg daily. 3. Atorvastatin 40 mg daily. 4. Isosorbide mononitrate 30 mg daily. 5. Metoprolol tartrate 25 mg b.i.d. 6. Omeprazole 20 mg daily. 7. Gabapentin 300 mg daily. 8. Eliquis 5 mg b.i.d. 9. Glipizide 5 mg daily. 10. Norvasc 10 mg daily. 11. Metformin 500 mg at bedtime. 12. Tylenol with codeine p.r.n. 13. Fish oil daily. 14. Farxiga 10 mg daily. FAMILY HISTORY: Negative for arrhythmia. SOCIAL HISTORY: The patient is . She has approximately a [id number] history of smoking, but quit in 2001. She denies any use of alcohol. REVIEW OF SYSTEMS: 14-point review of systems was negative except for what was mentioned in the history of present illness. PHYSICAL EXAMINATION: GENERAL: The patient is an overweight-appearing female in no apparent distress. VITAL SIGNS: Blood pressure 120/53, pulse 77, respirations 16. HEENT: Head: Normocephalic. Pupils equal, round, and reactive to light and accommodation. NECK: Supple without jugular venous distention. RESPIRATORY: Breath sounds clear to auscultation bilaterally. Respiratory effort nonlabored with good bilateral excursion. CARDIOVASCULAR: Regular rate and rhythm. S1, S2. No murmurs, rubs, or gallops. PMI nondisplaced. No thrills, lifts, or heaves. ABDOMEN: Soft/nontender. Bowel sounds normoactive. Hepatojugular reflex negative. EXTREMITIES: No lower extremity edema noted. NEUROLOGIC/PSYCHIATRIC: Oriented x3. Normal affect. Cranial nerves 2 through 12 grossly intact. DIAGNOSTIC DATA: EKG on admission demonstrated atypical atrial flutter with rapid ventricular response at 137 beats per minute. Current EKG demonstrates normal sinus rhythm. Troponin is slightly elevated as well as white blood cell count. IMPRESSION: 1. Episode of atypical atrial flutter in a patient who underwent pulmonary venous antrum isolation on 11/17/[address] Nunez. After the procedure, her Multaq was discontinued. Her arrhythmia spontaneously converted in the emergency room with rate control, utilizing intravenous Cardizem. 2. Thromboembolic risk factors of advancing age, female gender, vascular disease, and hypertension giving her a CHADs/VASc score of 4. 3. Bleeding risk factors of hypertension and previous perinephric hematoma giving her HAS-BLED score of 2. 4. Left atrial appendage occluder (Watchman) in-situ. 5. Preserved left ventricular ejection fraction based on previous echocardiogram. PLAN: It was reiterated to the patient that we commonly see post PVAI inflammatory atrial arrhythmias. Therefore, she was encouraged to restart her Multaq at 400 mg p.o. b.i.d. She was also encouraged to continue her Eliquis at this time. She will be given a followup appointment with Dr. Grimes in 2 to 3 weeks. In the interim, she was encouraged to call when she experiences progressively worsening palpitations. I will also have Dr. Grimes's nurse call her next week just to make sure she is feeling better. She was encouraged to embark on a regular exercise regimen for weight loss and conditioning. When she is about 6 weeks post Watchman procedure, we will proceed with a transesophageal echocardiogram to look for any peridevice leak. This plan was discussed with Fely Baptiste over the telephone. He was agreeable. Job ID: [id number] [facility]ENTER[facility]ley
== END 2019-11-25 09:43 | disposition home or self-care (01) ==
LOC: ERS 06:24
DX: I48.91 Unspecified atrial fibrillation (principal); R79.89 Other specified abnormal findings of blood chemistry; E11.51 Type 2 diabetes mellitus with diabetic peripheral angiopathy without gangrene; I25.10 Atherosclerotic heart disease of native coronary artery without angina pectoris; K21.9 Gastro-esophageal reflux disease without esophagitis; E78.5 Hyperlipidemia, unspecified; I10 Essential (primary) hypertension; F32.9 Major depressive disorder, single episode, unspecified; G47.30 Sleep apnea, unspecified; Z79.01 Long term (current) use of anticoagulants; Z86.73 Personal history of transient ischemic attack (TIA), and cerebral infarction without residual deficits; Z79.82 Long term (current) use of aspirin; Z79.84 Long term (current) use of oral hypoglycemic drugs; Z79.899 Other long term (current) drug therapy
CPT/HCPCS: 71045; 80053; 82553; 83880; 84484; 85025; 93005; 96374

== ENCOUNTER 2020-01-22 09:07 | Outpatient (CLI) | payer MEDICARE ==
[2020-01-22] MEDS ORDERED: methylPREDNISolone Sod Succ/PF 125 MG/2 ML VIAL ONE (10:42)
--- NOTE | 2020-01-22 12:21 | CT ---
CT ANGIOGRAM THORAX WITH IV CONTRAST AND 3-D RECONSTRUCTIONS CLINICAL INDICATION: Paroxysmal atrial fibrillation. Watchman device in place. CT examination requested for evaluation of the watchman device. COMPARISON: None FINDINGS: Pulmonary arteries: No filling defects in the central pulmonary arteries to suggest pulmonary embolus . The segmental and subsegmental pulmonary arteries are not well opacified on this examination, and pulmonary emboli at these levels is difficult to evaluate. Aorta: Vascular calcifications in the thoracic aorta. Thoracic aorta is normal in caliber without nam dence of an aortic dissection. Lungs: Lung apices as well as right lateral lung base is excluded from this exam due to the examinati on being tailored for evaluation of the heart. Linear and patchy density in the right middle lobe is seen and unchanged compared to study of 05/07/2019 and likely related to an area of mild scarring. Minimal nonspecific groundglass densities are seen in the visualized lungs bilaterally. These groundglass densities have improved compared to the visualized lung bases on CT abdomen on 05/07/2019. Mediastinum: Postoperative changes related to median sternotomy and aortic valve replacement are note d. There is a watchman device seen in the left atrial appendage. However, there is contrast opacification within the watchman device as well as distal to the watchman device in the left atrial appendage. Vascular calcifications are seen in the coronary arteries. Prominent calcifications mitral valve amanda boy are seen. No enlarged mediastinal lymph nodes are seen. Osseous structures: Multilevel degenerative changes are seen in the thoracic spine. Chest wall: A loop recorder device is seen in the subcutaneous soft tissues just to the left of midli ne at the level of the upper chest Upper abdomen: Calcified granulomata are seen in the visualized spleen and liver. Postcholecystectomy changes are present. Vascular calcification visualized upper abdominal aorta. IMPRESSION: 1. Watchman device in place in the left atrial appendage. However, there is contrast seen distal to t he left atrial appendage without occlusion of the left atrial appendage. 2. Prominent vascular calcifications. The patient was premedicated for this examination with 50 mg of Benadryl as well as loratadine orally 30 minutes prior to the examination. However, the patient did develop hives on the left side of face. No additional symptoms were present and vital signs were stable. Patient was administered Solu- Medrol 125 mg intravenously. Patient was monitored in the radiology nurses holding area for just over one hour with resolution of symptoms. Patient was discharged in stable condition and instructed to take an additional dose of Benadryl in 4 hours. If the patient is to receive a contrast study in the future, a steroid and Benadryl preparation is recommended 13, 7, and 1 hour prior to the exam.
[2020-01-22] MEDS ORDERED: Iopamidol 370 76% 100 ML VIAL ONE (14:04)
== END 2020-01-22 09:08 | disposition home or self-care (01) ==
LOC: CT 09:07
PROVIDERS: ATTEND Internal Medicine Cardiovascular Disease
DX: I48.0 Paroxysmal atrial fibrillation (principal); I70.90 Unspecified atherosclerosis
CPT/HCPCS: 71275; 82565; J2930; Q9967

== ENCOUNTER 2023-03-20 13:26 | Outpatient (CLI) | payer MEDICARE | END 2023-03-20 13:27 | disposition home or self-care (01) | LOC: ULT 13:26 | PROVIDERS: ATTEND Family Medicine | DX: R22.0 Localized swelling, mass and lump, head (principal); E04.2 Nontoxic multinodular goiter | CPT/HCPCS: 76536 ==

== ENCOUNTER 2024-03-06 14:02 | Outpatient (CLI) | payer MEDICARE ==
[2024-03-06 14:59] LABS: #Basophils 0.03 10x3/uL (0.0-0.2); %Basophils 0.3 % (0.0-1.0); %Lymphocytes 11.5 % (21.0-51.0); %Monocytes 6.5 % (0.0-10.0); %Neutrophils 80.5 % (42.0-75.0); Hematocrit 35.9 % (36.0-47.0); Hemoglobin 11.2 g/dL (12.0-16.0); Mean Corpuscular HGB CONC 31.2 g/dL (32.0-36.0); Mean Corpuscular Hemoglobin 29.6 pg (27.0-31.0); Mean Platelet Volume 11.9 fL (7.4-10.4); Platelet Count 197 10x3/uL (130-400); RBC Distribution Width 14.7 % (11.5-14.5); Red Blood Cell (RBC) Count 3.78 mill/uL (4.20-5.40)
[2024-03-06 15:23] LABS: Anion Gap 11 mmol/L (10-20); BUN (Urea Nitrogen) 16 mg/dL (9.8-20.1); Calc. Creatinine Clearance 0 mL/min (70-130); Calcium 9.1 mg/dL (7.8-10.44); Carbon Dioxide 26 mmol/L (23-31); Chloride 108 mmol/L (98-107); Estimated GFR 93; Glucose 127 mg/dL (83-110); Potassium 3.7 mmol/L (3.5-5.1); Sodium 141 mmol/L (136-145)
== END 2024-03-06 14:03 | disposition home or self-care (01) ==
LOC: LABBT 14:02
PROVIDERS: ATTEND Internal Medicine Cardiovascular Disease
DX: Z01.812 Encounter for preprocedural laboratory examination (principal); I35.0 Nonrheumatic aortic (valve) stenosis
CPT/HCPCS: 80048; 85025

== ENCOUNTER → 2024-03-11 | Day surgery (SDC) | payer MEDICARE ==
[2024-03-06 14:28] VITALS: BMI 29.7
[~2024-03-11] MED LIST: Heparin 10,000 UNITS/ 10 ML VIAL ONE; Iopamidol 370 76% 100 ML VIAL ONE; Midazolam HCl 2 mg/2 ml Vial ONE; Nitroglycerin 50 MG/250 ML BOT 0 ML ONE; fentaNYL 50 mcg/mL 1 mL Vial ONE
== END ==
LOC: SDC 05:52
PROVIDERS: ATTEND Internal Medicine Cardiovascular Disease
PROC: 4A023N8 Measurement of Cardiac Sampling and Pressure, Bilateral, Percutaneous Approach (ICD-10-PCS; principal; 2024-03-11)
DX: I35.0 Nonrheumatic aortic (valve) stenosis (principal); I48.0 Paroxysmal atrial fibrillation; I10 Essential (primary) hypertension; I25.10 Atherosclerotic heart disease of native coronary artery without angina pectoris; E78.5 Hyperlipidemia, unspecified; E11.9 Type 2 diabetes mellitus without complications; D64.9 Anemia, unspecified; S37.012D Minor contusion of left kidney, subsequent encounter; Z95.1 Presence of aortocoronary bypass graft; Z87.891 Personal history of nicotine dependence; Z95.818 Presence of other cardiac implants and grafts; Z90.49 Acquired absence of other specified parts of digestive tract; Z90.89 Acquired absence of other organs; Z90.710 Acquired absence of both cervix and uterus; Z98.890 Other specified postprocedural states; Z88.2 Allergy status to sulfonamides; Z88.8 Allergy status to other drugs, medicaments and biological substances; Z88.1 Allergy status to other antibiotic agents; Z88.0 Allergy status to penicillin; Z91.041 Radiographic dye allergy status; Z79.82 Long term (current) use of aspirin; Z79.899 Other long term (current) drug therapy; X58.XXXD Exposure to other specified factors, subsequent encounter
CPT/HCPCS: 93461; C1769 ×2; C1887; J1644; J2250; J3010; 99152; 99153; C1751; C1894; Q9967